=== PATIENT | female | born 1985 | race Caucasian/White ===

== ENCOUNTER 2017-05-01 23:24 | Emergency (ER) | payer OTHER, SELFPAY ==
[~2017-05-01] VITALS: Ht 160 cm; Wt 77.3 kg
[2017-05-02] MEDS ORDERED: CLEO300C2 PO (01:41)
[2017-05-02] MEDS ORDERED: NORCOTAB PO (01:41)
[2017-05-02] MEDS ORDERED: CLINDAMYCIN 150 MG CAP PO ONE (01:45)
[2017-05-02] MEDS ORDERED: NORCO, ANEXSIA 5/325MG TABLET (HYDROcodone/ACETAMINOPHEN) PO ONE (01:45)
[2017-05-02 01:50] VITALS: BP 123/56
[2017-05-17] MEDS ORDERED: ZITHTAB PO (14:13)
== END 2017-05-02 01:53 | disposition home or self-care (01) ==
LOC: M ED 23:24
DX: M27.3 Alveolitis of jaws (principal); F17.210 Nicotine dependence, cigarettes, uncomplicated; Z88.0 Allergy status to penicillin

== ENCOUNTER 2017-06-02 13:23 | Emergency (ER) | payer OTHER ==
[~2017-06-02] VITALS: Ht 160 cm; Wt 77.3 kg
[~2017-06-02 13:23] MED LIST: CLEO300C2 PO; NORCOTAB PO; ZITHTAB PO
[2017-06-02] MEDS ORDERED: GI COCKTAIL 50ML BTL(HYOSCYAMINE/MAALOX/LIDOCAINE VISCOUS)(1:3:1) PO ONE (15:30)
[2017-06-02 15:43] LABS: BASO % 0.4 % (0.0-1.0); EOS # 0.1 10^3/uL (0.0-0.50); EOS % 1.6 % (0.0-3.0); IMMATURE GRANULOCYTE % 0.2 % (0-0); LYMPH # 3.1 10^3/uL (1.5-4.5); LYMPH % 36.4 % (24.0-44.0); MEAN CORPUSCULAR HEMOGLOBIN 26.5 pg (27.0-33.0); MEAN CORPUSCULAR HGB CONC 31.3 g/dl (32.0-36.5); MEAN CORPUSCULAR VOLUME 84.8 fl (80.0-96.0); MONO # 0.4 10^3/uL (0.0-0.8); NEUTROPHILS # 4.8 10^3/uL (1.8-7.7); NEUTROPHILS % 56.4 % (36.0-66.0); PLATELET COUNT, AUTOMATED 289 10^3/uL (150-450); RED CELL DISTRIBUTION WIDTH 14.8 % (11.5-14.5); WHITE BLOOD COUNT 8.6 10^3/uL (4.0-10.0)
--- NOTE | 2017-06-02 16:06 | REP ---
Clinical: Chest pain . Comparison: 05/17/2017 . Technique: PA and lateral. Findings: The mediastinum and cardiac silhouette are normal. The lung barajas are clear and without acute consolidation, effusion, or pneumothorax. The skeletal structures are intact and normal. Impression: 1. No acute cardiopulmonary process. Signed by Samson Hassan MD 06/02/2017 03:58 P
[2017-06-02 16:07] LABS: ALBUMIN 3.5 GM/DL (3.2-5.2); ALBUMIN/GLOBULIN RATIO 0.97 (1.00-1.93); ALKALINE PHOSPHATASE 71 U/L (45-117); ALT/SGPT 18 U/L (12-78); ANION GAP 5 MEQ/L (8-16); AST/SGOT 10 U/L (7-37); BILIRUBIN,DIRECT < 0.1 MG/DL (0.0-0.2); BILIRUBIN,TOTAL 0.2 MG/DL (0.2-1.0); BLOOD UREA NITROGEN 4 MG/DL (7-18); CALCIUM LEVEL 8.7 MG/DL (8.5-10.1); CARBON DIOXIDE LEVEL 29 MEQ/L (21-32); CHLORIDE LEVEL 104 MEQ/L (98-107); CREATININE FOR GFR 0.64 MG/DL (0.55-1.02); GLOMERULAR FILTRATION RATE > 60.0 (>60); GLUCOSE, FASTING 123 MG/DL (70-105); POTASSIUM SERUM 3.5 MEQ/L (3.5-5.1); SODIUM LEVEL 138 MEQ/L (136-145); TOTAL PROTEIN 7.1 GM/DL (6.4-8.2)
[2017-06-02 16:36] VITALS: BP 126/74
--- NOTE | 2017-06-03 09:23 | ECGEPIP ---
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
== END 2017-06-02 17:07 | disposition home or self-care (01) ==
LOC: M ED 13:23
DX: R07.89 Other chest pain (principal); F17.210 Nicotine dependence, cigarettes, uncomplicated; Z88.0 Allergy status to penicillin

== ENCOUNTER 2017-07-18 20:18 | Emergency (ER) | payer OTHER ==
[2017-07-18] MEDS: MORPHINE 4 MG/ML 1ML SYRINGE IV ×2 (20:59→22:56)
[2017-07-18 21:12] LABS: BASO % 0.5 % (0.0-1.0); EOS # 0.2 10^3/uL (0.0-0.50); EOS % 2.4 % (0.0-3.0); HEMATOCRIT 38.1 % (36.0-47.0); HEMOGLOBIN 12.1 g/dl (12.0-16.0); IMMATURE GRANULOCYTE % 0.2 % (0-0); LYMPH # 2.6 10^3/uL (1.5-4.5); LYMPH % 31.6 % (24.0-44.0); MEAN CORPUSCULAR HEMOGLOBIN 26.7 pg (27.0-33.0); MEAN CORPUSCULAR HGB CONC 31.8 g/dl (32.0-36.5); MEAN CORPUSCULAR VOLUME 83.9 fl (80.0-96.0); MONO # 0.5 10^3/uL (0.0-0.8); MONO % 5.5 % (0.0-5.0); NEUTROPHILS % 59.8 % (36.0-66.0); PLATELET COUNT, AUTOMATED 292 10^3/uL (150-450); RED BLOOD COUNT 4.54 10^6/uL (4.00-5.40); RED CELL DISTRIBUTION WIDTH 14.8 % (11.5-14.5); WHITE BLOOD COUNT 8.4 10^3/uL (4.0-10.0)
[2017-07-18 21:29] LABS: CONTROL LINE HCG INT CTR LINE PRESENT; HCG, SERUM QUALITATIVE NEGATIVE (NEGATIVE)
[2017-07-18 21:37] LABS: ALBUMIN 3.4 GM/DL (3.2-5.2); ALBUMIN/GLOBULIN RATIO 0.89 (1.00-1.93); ALKALINE PHOSPHATASE 80 U/L (45-117); ALT/SGPT 20 U/L (12-78); ANION GAP 7 MEQ/L (8-16); AST/SGOT 13 U/L (7-37); BILIRUBIN,DIRECT < 0.1 MG/DL (0.0-0.2); BILIRUBIN,TOTAL 0.1 MG/DL (0.2-1.0); BLOOD UREA NITROGEN 9 MG/DL (7-18); CALCIUM LEVEL 7.9 MG/DL (8.5-10.1); CARBON DIOXIDE LEVEL 25 MEQ/L (21-32); CHLORIDE LEVEL 108 MEQ/L (98-107); CREATININE FOR GFR 0.67 MG/DL (0.55-1.02); GLOMERULAR FILTRATION RATE > 60.0 (>60); GLUCOSE, FASTING 132 MG/DL (70-105); POTASSIUM SERUM 3.8 MEQ/L (3.5-5.1); SODIUM LEVEL 140 MEQ/L (136-145); TOTAL PROTEIN 7.2 GM/DL (6.4-8.2)
[2017-07-18] MEDS ORDERED: ISOVUE-370 76% 100ML VIAL (Q9967) As Ordered (21:37)
[2017-07-19] MEDS: OXYCODONE/APAP 5MG/325MG(BULK FOR ED) 1 TABLET PO (00:15)
== END 2017-07-19 00:17 | disposition home or self-care (01) ==
LOC: M ED 07-19 00:17
DX: Z04.1 Encounter for examination and observation following transport accident (principal); S16.1XXA Strain of muscle, fascia and tendon at neck level, initial encounter; V48.5XXA Car driver injured in noncollision transport accident in traffic accident, initial encounter; Y92.410 Unspecified street and highway as the place of occurrence of the external cause; Y93.89 Activity, other specified; Y99.8 Other external cause status; F17.210 Nicotine dependence, cigarettes, uncomplicated; Z88.0 Allergy status to penicillin
CPT/HCPCS: Q9967

== ENCOUNTER 2017-07-30 18:00 | Emergency (ER) | payer OTHER ==
[2017-07-30] MEDS: METOCLOPRAMIDE INJ 10MG/2ML VIAL (J2765) IV (18:40)
[2017-07-30] MEDS: diphenhydrAMINE INJ 50MG/ML VIAL (J1200) IV (18:40)
[2017-07-30] MEDS: NS 1,000 ML IV (18:40)
[2017-07-30] MEDS: KETOROLAC 30 MG/ML VIAL (J1885) IV (18:40)
[2017-07-30] MEDS: HYDROmorphone HCL 1 MG/ML SYRINGE (J1170) IV (19:51)
== END 2017-07-30 20:40 | disposition home or self-care (01) ==
LOC: M ED 18:00
DX: R51 Headache (principal); F07.81 Postconcussional syndrome; F17.210 Nicotine dependence, cigarettes, uncomplicated
CPT/HCPCS: J1170

== ENCOUNTER 2019-03-10 11:14 | Emergency (ER) | payer OTHER ==
[~2019-03-10] VITALS: Ht 162.6 cm; Wt 83.9 kg
[~2019-03-10 11:14] MED LIST changes: +HYDR-3715 PO; +IBUP-1114 PO; -NORCOTAB PO; +PERC5TAB12 PO
[2019-03-10] MEDS ORDERED: prenatal (11:19)
[2019-03-10 12:00] LABS: BASO % 0.2 % (0.0-1.0); EOS # 0.2 10^3/uL (0.0-0.50); EOS % 1.7 % (0.0-3.0); HEMATOCRIT 39.1 % (36.0-47.0); HEMOGLOBIN 12.7 g/dl (12.0-15.5); LYMPH # 2.4 10^3/uL (1.5-4.5); MEAN CORPUSCULAR HEMOGLOBIN 29.1 pg (27.0-33.0); MEAN CORPUSCULAR HGB CONC 32.5 g/dl (32.0-36.5); MEAN CORPUSCULAR VOLUME 89.5 fl (80.0-96.0); MONO # 0.6 10^3/uL (0.0-0.8); MONO % 6.5 % (0.0-5.0); NEUTROPHILS # 5.7 10^3/uL (1.8-7.7); NEUTROPHILS % 64.3 % (36.0-66.0); PLATELET COUNT, AUTOMATED 223 10^3/uL (150-450); RED BLOOD COUNT 4.37 10^6/uL (4.00-5.40); WHITE BLOOD COUNT 8.9 10^3/uL (4.0-10.0)
[2019-03-10 12:25] LABS: BLOOD UREA NITROGEN 6 MG/DL (7-18); CARBON DIOXIDE LEVEL 27 MEQ/L (21-32); CHLORIDE LEVEL 108 MEQ/L (98-107); CREATININE FOR GFR 0.51 MG/DL (0.55-1.30); GLOMERULAR FILTRATION RATE > 60.0 (>60); GLUCOSE, FASTING 87 MG/DL (70-100); SODIUM LEVEL 140 MEQ/L (136-145)
[2019-03-10 12:29] LABS: HCG, SERUM QUALITATIVE POSITIVE (NEGATIVE)
[2019-03-10 13:16] LABS: HCG, SERUM QUANTITATIVE 92309 MIU/ML
[2019-03-10] MEDS ORDERED: ACETAMINOPHEN 500 MG TAB PO ONE (13:30)
--- NOTE | 2019-03-10 14:26 | REP ---
First trimester obstetric ultrasound, stat request for cramping and hematuria: There is a single intrauterine gestation. The pole crown-rump length is 1.9 cm corresponding to a gestational age of 8 weeks 3 days/LUZ MARIA is 10/17/2019. Gestational age by LMP is 8 weeks 3 days. heart rate is 163 beats per minute. There is no subchorionic hematoma. There is a normal size yolk sac measuring 3.9 mm in diameter. The uterine adnexa are unremarkable. There is no free fluid in the pelvis. Electronically Signed by Vaughn Garcia MD 03/10/2019 02:17 P
[2019-03-10 14:52] VITALS: BP 127/33
[2019-03-10] MEDS ORDERED: MACR100C43 PO (14:52)
[2019-03-10 15:27] LABS: CHLAMYDIA DNA AMPLIFICATION NEGATIVE (NEGATIVE); GC DNA AMPLIFICATION NEGATIVE (NEGATIVE)
== END 2019-03-10 14:59 | disposition home or self-care (01) ==
LOC: M ED 11:14
DX: O23.41 Unspecified infection of urinary tract in pregnancy, first trimester (principal); Z88.0 Allergy status to penicillin; Z3A.08 8 weeks gestation of pregnancy

== ENCOUNTER → 2019-05-06 | Outpatient (CLI) | payer OTHER ==
[~2019-05-06] MED LIST changes: +BUSP5TA PO; +HYDR-4571 PO; +MACR100C43 PO; +MULTTAB20 PO; +ZOLO25TA PO; +prenatal
[2019-05-06 13:10] LABS: BASO % 0.2 % (0.0-1.0); EOS # 0.1 10^3/uL (0.0-0.5); EOS % 1.1 % (0.0-3.0); HEMATOCRIT 37.9 % (36.0-47.0); HEMOGLOBIN 12.2 g/dl (12.0-15.5); LYMPH # 2.2 10^3/uL (1.5-5.0); MEAN CORPUSCULAR HEMOGLOBIN 29.5 pg (27.0-33.0); MEAN CORPUSCULAR HGB CONC 32.2 g/dl (32.0-36.5); MEAN CORPUSCULAR VOLUME 91.8 fl (80.0-96.0); MONO # 0.6 10^3/uL (0.0-0.8); MONO % 5.9 % (0.0-5.0); NEUTROPHILS # 6.5 10^3/uL (1.5-8.5); NEUTROPHILS % 69.2 % (36.0-66.0); PLATELET COUNT, AUTOMATED 214 10^3/uL (150-450); RED BLOOD COUNT 4.13 10^6/uL (4.00-5.40); WHITE BLOOD COUNT 9.4 10^3/uL (4.0-10.0)
[2019-05-06 14:33] LABS: HEPATITIS C VIRUS ABY INDEX 0.1 INDEX (<0.8); HIV 1&2 SCREEN CENTAUR NEGATIVE (NEGATIVE); RUBELLA IgG QUALITATIVE IMMUNE (IMMUNE)
[2019-05-06 15:05] LABS: CHLAMYDIA DNA AMPLIFICATION NEGATIVE (NEGATIVE); GC DNA AMPLIFICATION NEGATIVE (NEGATIVE)
== END ==
LOC: M SMT 10:37
PROVIDERS: ATTEND Obstetrics & Gynecology
DX: Z3A.08 8 weeks gestation of pregnancy (principal); Z34.01 Encounter for supervision of normal first pregnancy, first trimester

== ENCOUNTER 2019-05-11 20:21 | Day surgery (SDC) | payer OTHER ==
[~2019-05-11] VITALS: Ht 162.6 cm; Wt 80.1 kg
[~2019-05-11 20:21] MED LIST changes: -BUSP5TA PO; -HYDR-4571 PO; -MULTTAB20 PO; -ZOLO25TA PO
[2019-05-11] MEDS ORDERED: ZOLO25TA PO (20:42)
[2019-05-11] MEDS ORDERED: NS 1,000 ML IV ONE (20:45)
[2019-05-11] MEDS ORDERED: MORPHINE 4 MG/ML 1ML VIAL/SYRINGE (J2270) IV PRN (20:45)
[2019-05-11] MEDS ORDERED: SERTRALINE HCL 25 MG TABLET PO SCH (21:00)
[2019-05-11 21:08] LABS: BASO % 0.1 % (0.0-1.0); EOS # 0.1 10^3/uL (0.0-0.5); EOS % 0.5 % (0.0-3.0); HEMATOCRIT 36.6 % (36.0-47.0); HEMOGLOBIN 11.8 g/dl (12.0-15.5); LYMPH # 1.8 10^3/uL (1.5-5.0); LYMPH % 11.9 % (24.0-44.0); MEAN CORPUSCULAR HEMOGLOBIN 28.9 pg (27.0-33.0); MEAN CORPUSCULAR HGB CONC 32.2 g/dl (32.0-36.5); MEAN CORPUSCULAR VOLUME 89.7 fl (80.0-96.0); MONO # 0.5 10^3/uL (0.0-0.8); MONO % 3.5 % (0.0-5.0); NEUTROPHILS # 12.6 10^3/uL (1.5-8.5); NEUTROPHILS % 83.5 % (36.0-66.0); PLATELET COUNT, AUTOMATED 203 10^3/uL (150-450); RED BLOOD COUNT 4.08 10^6/uL (4.00-5.40); WHITE BLOOD COUNT 15.1 10^3/uL (4.0-10.0)
[2019-05-11 21:37] LABS: ALBUMIN 2.9 GM/DL (3.2-5.2); ALT/SGPT 11 U/L (12-78); BILIRUBIN,DIRECT < 0.1 MG/DL (0.0-0.2); BILIRUBIN,TOTAL 0.2 MG/DL (0.2-1.0); BLOOD UREA NITROGEN 5 MG/DL (7-18); CALCIUM LEVEL 8.3 MG/DL (8.5-10.1); CARBON DIOXIDE LEVEL 23 MEQ/L (21-32); CHLORIDE LEVEL 109 MEQ/L (98-107); CREATININE FOR GFR 0.42 MG/DL (0.55-1.30); GLOMERULAR FILTRATION RATE > 60.0 (>60); GLUCOSE, FASTING 91 MG/DL (70-100); LIPASE 212 U/L (73-393); POTASSIUM SERUM 3.6 MEQ/L (3.5-5.1); SODIUM LEVEL 139 MEQ/L (136-145)
[2019-05-11] MEDS ORDERED: ACETAMINOPHEN *IV* 1,000 MG in IV 1 EA IV ONE (22:00)
[2019-05-11] MEDS ORDERED: HYDROMORPHONE HCL 0.5 MG/ 0.5 ML SYRINGE (J1170 PER 1) IV PRN (22:00)
--- NOTE | 2019-05-11 22:11 | REPVR ---
PROCEDURE INFORMATION: Exam: US Pelvis Limited, Transabdominal Exam date and time: 05/11/2019 9:39 PM Clinical history: 33 years old, female; Pain; Other: Rlq; Additional info: Pain, rlq, second trimester TECHNIQUE: Imaging protocol: Real-time transabdominal pelvic ultrasound with image documentation. Limited exam. COMPARISON: CT ABD PELVIS WITH CONTRAST 07/18/2017 9:47 PM FINDINGS: Appendix: The appendix is not seen. Other findings: No specific abnormality is seen in the right lower quadrant. IMPRESSION: The appendix is not seen. Appendicitis is not excluded. Electronically signed by: Negro Fields On 05/11/2019 22:10:55 PM
--- NOTE | 2019-05-11 22:14 | REPVR ---
PROCEDURE INFORMATION: Exam: US Abdomen Complete Exam date and time: 05/11/2019 9:39 PM Clinical history: 33 years old, female; Pain; Other: Rlq; ; Additional info: Pain, rlq, second trimester TECHNIQUE: Imaging protocol: Real-time ultrasound of the abdomen with image documentation. COMPARISON: No relevant prior studies available. FINDINGS: Liver: The liver demonstrates no focal defects. Gallbladder: The gallbladder demonstrates no stones and no wall thickening but demonstrates an internal structures suggesting polyp or cholesterol stone. Common bile duct: CBD measures 5 mm. Pancreas: The pancreatic head and body appear normal. The tail is not well seen. Right kidney: The right kidney is normal measuring 11.2 cm with no hydronephrosis. Left kidney: The left kidney is normal measuring 11.8 cm with no hydronephrosis. Spleen: The spleen is normal measuring 12.4 cm. IMPRESSION: 1. Small gallbladder cholesterol stone or polyp. 2. Otherwise negative abdominal sonogram. Electronically signed by: Negro Fields On 05/11/2019 22:14:02 PM
--- NOTE | 2019-05-11 22:18 | REPVR ---
PROCEDURE INFORMATION: Exam: US , Limited Exam date and time: 05/11/2019 9:39 PM Clinical history: 33 years old, female; Pain; Other: Rlq; Gestational age or lmp: 17; ; Additional info: Pain, rlq, second trimester TECHNIQUE: Imaging protocol: Real-time ultrasound of the maternal uterus with image documentation. Exam focused on the clinical indication. COMPARISON: CT ABD PELVIS WITH CONTRAST 07/18/2017 9:47 PM FINDINGS: GESTATION: Gestation: Single intrauterine fetus. Heart rate: heartbeat of 153 beats per minute. Placenta: Anterior placenta. Amniotic fluid: NOE of 9.3 cm. MATERNAL: Cervix: The cervix is closed measuring 4.2 cm. IMPRESSION: 1. Single live intrauterine fetus. 2. Normal NOE of 9.3 cm. Electronically signed by: Negro Fields On 05/11/2019 22:18:24 PM
--- NOTE | 2019-05-12 00:04 | REPVR ---
PROCEDURE INFORMATION: Exam: MR Abdomen Without Contrast Exam date and time: 05/11/2019 11:28 PM Clinical history: 33 years old, female; Abdominal pain; Patient HX: 17wks , rlq pain ? appy TECHNIQUE: Imaging protocol: MR of the abdomen without contrast. COMPARISON: US Abdomen 05/11/2019 9:20 PM FINDINGS: Liver: No mass. Gallbladder and bile ducts: Unremarkable. No stones. No ductal dilation. Pancreas: Unremarkable. No ductal dilation. Spleen: Unremarkable. No splenomegaly. Adrenals: Unremarkable. No mass. Kidneys and ureters: Unremarkable. No solid mass. No hydronephrosis. Stomach and bowel: Unremarkable. Appendix: Appendix is borderline enlarged measuring 6.5-7 mm without significant periappendiceal fluid. Minimal appendicitis is not excluded and should be assessed clinically. Intraperitoneal space: No fluid collection. Arteries: No abdominal aortic aneurysm. Reproductive: Gravid uterus demonstrated. Bones/joints: Unremarkable. Soft tissues: Unremarkable. IMPRESSION: Appendix is borderline enlarged measuring 6.5-7 mm without significant periappendiceal fluid. Minimal appendicitis is not excluded and should be assessed clinically. A critical call has been made to speak with the ordering physician/practitioner. This report will be amended once consultation has occurred. Electronically signed by: Zelalem Shin On 05/12/2019 00:03:42 AM
[2019-05-12] MEDS ORDERED: CLINDAMYCIN 900 MG in IV 1 EA IV ONE (00:30)
[2019-05-12] MEDS ORDERED: ZOLO25TA PO (00:40)
[2019-05-12] MEDS ORDERED: BUSP5TA PO (00:40)
[2019-05-12] MEDS ORDERED: MULTTAB20 PO (00:40)
[2019-05-12] MEDS ORDERED: BUPIVACAINE/EPIN 0.25% 30 ML VIAL As Ordered ONE (01:02)
[2019-05-12] MEDS ORDERED: ACETAMINOPHEN TAB 650MG DOSE (2X325MG) PO PRN (01:15)
[2019-05-12] MEDS ORDERED: busPIRone 5 MG TAB PO PRN (01:15)
[2019-05-12] MEDS ORDERED: dexameTHASONE 4 MG/ML 1ML VIAL (J1100) As Ordered ONE (01:28)
[2019-05-12] MEDS ORDERED: ROCURONIUM BROMIDE 50 MG/5 ML VIAL As Ordered ONE (01:28)
[2019-05-12] MEDS ORDERED: LIDOCAINE 2% INJ 100 MG/5 ML SDV (FOR ANES.) As Ordered ONE (01:28)
[2019-05-12] MEDS ORDERED: ONDANSETRON 4MG/2ML VIAL (J2405) As Ordered ONE (01:28)
[2019-05-12] MEDS ORDERED: PROPOFOL 200 MG/20 ML VIAL As Ordered ONE (01:28)
[2019-05-12] MEDS ORDERED: SUGAMMADEX SODIUM 500 MG/5 ML VIAL (BRIDION) As Ordered ONE (01:28)
[2019-05-12] MEDS ORDERED: METOCLOPRAMIDE INJ 10MG/2ML VIAL (J2765) As Ordered ONE (01:28)
[2019-05-12] MEDS ORDERED: fentaNYL 250 MCG/5 ML INJECTION (J3010) As Ordered ONE (01:28)
[2019-05-12] MEDS ORDERED: DESFLURANE 240 ML INHALANT As Ordered ONE (01:28)
[2019-05-12] MEDS ORDERED: fentaNYL 100 MCG/2 ML INJECTION (J3010) IV PRN (02:00)
[2019-05-12] MEDS ORDERED: LR 1,000 ML IV SCH (02:00)
[2019-05-12] MEDS ORDERED: ONDANSETRON 4MG/2ML VIAL (J2405) IV PRN (02:00)
[2019-05-12] MEDS: NORCO, ANEXSIA 5/325MG TABLET (HYDROcodone/ACETAMINOPHEN) PO PRN ×2 (02:35→09:06)
[2019-05-12 03:00] VITALS: BP 133/66
[2019-05-12] MEDS: NS 1,000 ML IV SCH ×2 (03:52→09:08)
[2019-05-12 04:00] VITALS: BP 107/60
[2019-05-12] MEDS: MORPHINE 4 MG/ML 1ML VIAL/SYRINGE (J2270) IV PRN ×2 (04:29→10:52)
[2019-05-12 05:00] VITALS: BP 106/60
[2019-05-12 06:00] VITALS: BP 105/61
[2019-05-12 07:05] VITALS: BP 105/62
--- NOTE | 2019-05-12 07:28 | HPE ---
DATE OF ADMISSION: 05/11/2019 CHIEF COMPLAINT: Right lower quadrant pain. HISTORY OF PRESENT ILLNESS: The patient 33-year-old female who presents with right lower quadrant pain started early this afternoon and pain was sharp stay the right lower quadrant got suddenly worse had some nausea, vomiting with no fevers. No problems urination or bowel movements. She came into emergency room for evaluation. The patient also 17 weeks . In the ER ultrasound was negative for appendicitis. However, an MRI was obtained which did confirm there is likely early appendicitis. She also had elevated white count because of this I was called to evaluate. She is extremely tender alongside with leukocytosis and MRI findings highly suspicious for recurrent acute appendicitis. No recent travel or trauma to the area. No recent changes in medications or diet. No recent illnesses. PAST MEDICAL HISTORY: Anxiety, depression. PAST SURGICAL HISTORY: None. ALLERGIES: Penicillin. MEDICATIONS: Please see med rec. SOCIAL HISTORY: Denies drug, alcohol, tobacco abuse. FAMILY HISTORY: Noncontributory. REVIEW OF SYSTEMS: Pertinent, positives and negatives in HPI. PHYSICAL EXAMINATION: Alert and oriented times three. No acute distress. Vitals: Temperature 99, pulse 87, respirations 16, blood pressure 132/79, pulse ox 95% room air. HEENT: Pupils equally round react to light accommodation. Heart: S1-S2 regular rate and Lungs: Clear to auscultation bilaterally. Abdomen: Soft and tender to palpation right lower quadrant. Localized guarding or rigidity. Extremities: No clubbing, cyanosis or edema. LABORATORY DATA: White count 15.1, hemoglobin 11.8, platelets 203, potassium 3.6, creatinine 0.42. IMAGING STUDIES: Obstetric ultrasound showed single live intrauterine fetus. Heart beat of 153 per minute. An MRI shows borderline appendix 6.5-7 mm without significant periappendiceal fluid minimal appendicitis not excluded. ASSESSMENT/PLAN: The patient is a 33-year-old female likely early acute appendicitis. Recommendation to proceed with laparoscopic appendectomy. Risks, benefits of procedure not limited but including bleeding, infection, hernia formation, damage to surrounding structure need for further surgery and labor were discussed in detail with the patient and the family. Informed consent was obtained procedure was planned. Postoperatively will keep her until late morning make sure that she is tolerating diet, ambulating, urinating without any difficulty and the pain is improving and then we will plan for discharge home.
[2019-05-12 09:08] LABS: HEMATOCRIT 34.7 % (36.0-47.0); HEMOGLOBIN 11.1 g/dl (12.0-15.5); MEAN CORPUSCULAR VOLUME 90.6 fl (80.0-96.0); PLATELET COUNT, AUTOMATED 194 10^3/uL (150-450); RED BLOOD COUNT 3.83 10^6/uL (4.00-5.40); WHITE BLOOD COUNT 11.3 10^3/uL (4.0-10.0)
[2019-05-12] MEDS ORDERED: HYDR-4571 PO (09:53)
[2019-05-12 10:00] VITALS: BP 122/62
--- NOTE | 2019-05-12 10:06 | RO ---
DATE OF PROCEDURE: 05/11/2019 PREOPERATIVE DIAGNOSIS: Acute appendicitis. POSTOPERATIVE DIAGNOSIS: Acute appendicitis. PROCEDURE: Laparoscopic appendectomy. SURGEON: Dr. Vaughn Evans ANESTHESIA: General. ESTIMATED BLOOD LOSS: 5 COMPLICATIONS: None. INDICATIONS FOR PROCEDURE: The patient is a 33-year-old female who presents with right lower quadrant pain found to have likely acute appendicitis. Recommendation was to proceed with laparoscopic appendectomy. Risks and benefits of the procedure, not limited but including bleeding, infection, hernia formation, damage to surrounding structure need for further surgery discussed in detail with the patient. Informed consent was obtained, procedure was planned. DESCRIPTION OF PROCEDURE: The patient was taken back to operating room 2. After sufficient sedation the abdomen was sterilely prepped and draped. Next a time-out was done to confirm proper patient and proper procedure. Following that, a 5 mm incision in left lower quadrant, Veress needle was inserted and the abdomen was insufflated 50 mmHg. Next Veress needle was removed. A 5 mm Optiview port was used to gain access to the abdomen. Once the abdomen was entered, the uterus was examined. 8 mm port was placed supraumbilically midline, 5 mm port infraumbilically in the midline. The cecum was identified and traced backwards till the appendix was reached. The appendix was significantly inflamed with some surrounding fluid. The appendix was carefully elevated up in the air. Mesoappendix was taken down to the base of the appendix using the Enseal. Base the appendix was ligated with two PDS Endoloops and then amputated using the Enseal and placed inside of a 5 mm EndoCatch bag and brought out through the supraumbilical port site. The abdomen was examined one last time, ports were removed. Skin incisions closed with #4-0 Vicryl subcuticular sutures. The abdomen cleaned and dried. Steri-Strips 4x4 and tape were applied thus ending procedure.
== END 2019-05-12 12:07 | disposition home or self-care (01) ==
LOC: M ED 20:21 → M SDC 20:22 → M MSPAV 05-12 02:55 → M SDC 05-12 12:07
PROVIDERS: ATTEND Surgery
DX: O99.612 Diseases of the digestive system complicating pregnancy, second trimester (principal); K35.80 Unspecified acute appendicitis; O99.112 Other diseases of the blood and blood-forming organs and certain disorders involving the immune mechanism complicating pregnancy, second trimester; D72.829 Elevated white blood cell count, unspecified; K21.9 Gastro-esophageal reflux disease without esophagitis; M54.9 Dorsalgia, unspecified; O99.342 Other mental disorders complicating pregnancy, second trimester; F41.9 Anxiety disorder, unspecified; F32.9 Major depressive disorder, single episode, unspecified; Z3A.17 17 weeks gestation of pregnancy; Z88.0 Allergy status to penicillin; Z79.899 Other long term (current) drug therapy
CPT/HCPCS: 36415; 44970; 76700; 76815; 80048; 80076; 81001; 83605; 83690; 85025; 85027; 87086; 88304; 93041; 96361; 96365; 96375; 96376; 99284; J0131; J1100; J1170; J2270; J2405; J2765; J3010

== ENCOUNTER → 2019-05-30 | Outpatient (CLI) | payer OTHER ==
[~2019-05-30] MED LIST changes: +BUSP5TA PO; +HYDR-4571 PO; +MULTTAB20 PO; +ZOLO25TA PO
--- NOTE | 2019-05-30 12:13 | REP ---
OB ULTRASOUND: Real-time sonographic evaluation of the gravid uterus performed. There is a living intrauterine gestation with a estimated gestational age 20 weeks 0 days, EDC 10/17/2019. Today's measurements indicate appropriate growth. Biometry and Growth: BPD 46 mm = 19 weeks 6 days, 47th percentile HC 166 mm = 19 weeks 2 days, 29th percentile AC 148 mm = 20 weeks 1 day, 52nd percentile FL 32 mm = 19 weeks 6 days, 45th percentile HC/AC ratio 1.12 within normal range. Estimated weight 319 grams, 43rd percentile. SEEN/GROSSLY UNREMARKABLE Lateral ventricles Yes Posterior fossa Yes Upper lip Yes Four-chamber heart Yes LVOT Yes RVOT Yes Stomach Yes Cord insertion Yes Three vessel cord Yes Kidneys Yes Bladder Yes Spine No Cervical length: Closed and measures 4.4 cm in length. heart rate: 141 beats per minute. position: Breech. Placenta: Anterior and grade 0 with no previa or abruption. Amniotic fluid: Within normal limits. Electronically Signed by Vaughn Lam MD 05/31/2019 08:40 P
== END ==
LOC: M RAD 09:53
PROVIDERS: ATTEND Advanced Practice Midwife
DX: Z34.82 Encounter for supervision of other normal pregnancy, second trimester (principal)

== ENCOUNTER 2019-06-04 21:14 | Outpatient (CLI) | payer OTHER ==
[~2019-06-04] VITALS: Ht 162.6 cm; Wt 185.0 kg
[2019-06-04] MEDS ORDERED: SERT-141 PO (22:02)
[2019-06-04 22:07] VITALS: BP 131/87
[2019-06-04] MEDS ORDERED: PROMETHAZINE 25 MG TAB PO ONE (22:15)
[2019-06-04] MEDS ORDERED: ACETAMINOPHEN 500 MG TAB PO ONE (22:15)
[2019-06-04 22:27] LABS: BASO % 0.2 % (0.0-1.0); EOS # 0.2 10^3/uL (0.0-0.5); EOS % 1.8 % (0.0-3.0); HEMATOCRIT 34.6 % (36.0-47.0); HEMOGLOBIN 10.8 g/dl (12.0-15.5); LYMPH # 2.3 10^3/uL (1.5-5.0); LYMPH % 22.9 % (24.0-44.0); MEAN CORPUSCULAR HEMOGLOBIN 28.9 pg (27.0-33.0); MEAN CORPUSCULAR HGB CONC 31.2 g/dl (32.0-36.5); MEAN CORPUSCULAR VOLUME 92.5 fl (80.0-96.0); MONO # 0.5 10^3/uL (0.0-0.8); MONO % 4.9 % (0.0-5.0); NEUTROPHILS # 7.1 10^3/uL (1.5-8.5); NEUTROPHILS % 69.5 % (36.0-66.0); PLATELET COUNT, AUTOMATED 181 10^3/uL (150-450); RED BLOOD COUNT 3.74 10^6/uL (4.00-5.40); WHITE BLOOD COUNT 10.1 10^3/uL (4.0-10.0)
[2019-06-04 22:36] LABS: APPEARANCE, URINE CLEAR (CLEAR); BACTERIA, URINE AUTO 1+ (NEGATIVE); BILIRUBIN, URINE AUTO NEGATIVE (NEGATIVE); BLOOD, URINE BLOOD 1+ (NEGATIVE); COLOR, URINE STRAW (YELLOW); GLUCOSE, URINE (UA) AUTO NEGATIVE (NEGATIVE); KETONE, URINE AUTO NEGATIVE (NEGATIVE); LEUKOCYTE ESTERASE, URINE AUTO 3+ (NEGATIVE); NITRITE, URINE AUTO NEGATIVE (NEGATIVE); PROTEIN, URINE AUTO NEGATIVE (NEGATIVE); RBC, URINE AUTO 9 /HPF (0-3); SPECIFIC GRAVITY URINE AUTO 1.002 (1.002-1.035); SQUAMOUS EPITHELIAL CELL UR AU 8 /HPF (0-6); UROBILINOGEN, URINE AUTO 0.2 mg/dL (0.0-2.0); WBC, URINE AUTO 18 /HPF (0-3)
[2019-06-04 22:37] VITALS: BP 115/57
[2019-06-04 22:48] LABS: ALBUMIN 2.8 GM/DL (3.2-5.2); ALT/SGPT 16 U/L (12-78); AMYLASE 35 U/L (25-115); BILIRUBIN,TOTAL 0.1 MG/DL (0.2-1.0); BLOOD UREA NITROGEN 6 MG/DL (7-18); CALCIUM LEVEL 8.7 MG/DL (8.5-10.1); CARBON DIOXIDE LEVEL 27 MEQ/L (21-32); CHLORIDE LEVEL 109 MEQ/L (98-107); CREATININE FOR GFR 0.46 MG/DL (0.55-1.30); GLOMERULAR FILTRATION RATE > 60.0 (>60); GLUCOSE, FASTING 91 MG/DL (70-100); LIPASE 100 U/L (73-393); POTASSIUM SERUM 3.9 MEQ/L (3.5-5.1); SODIUM LEVEL 142 MEQ/L (136-145); TOTAL PROTEIN 6.1 GM/DL (6.4-8.2)
[2019-06-04 22:54] LABS: AMPHETAMINES URINE REFLEX NEGATIVE (NEGATIVE); BARBITURATES URINE REFLEX NEGATIVE (NEGATIVE); BENZODIAZEPINES URINE REFLEX NEGATIVE (NEGATIVE); CANNABINOIDS URINE REFLEX NEGATIVE (NEGATIVE); COCAINE METABOLITE URINE REFLE NEGATIVE (NEGATIVE); METHADONE URINE REFLEX NEGATIVE (NEGATIVE); OPIATES URINE REFLEX NEGATIVE (NEGATIVE); PHENCYCLIDINE URINE REFLEX NEGATIVE (NEGATIVE)
[2019-06-04] MEDS ORDERED: NITR-67 PO (22:54)
[2019-06-04] MEDS ORDERED: NITROFURANTOIN (MACROBID) 100 MG CAP PO ONE (23:00)
[2019-06-04 23:07] VITALS: BP 120/59
[2019-06-05 00:59] VITALS: BP 121/63
[2019-06-05] MEDS ORDERED: LR 1,000 ML IV ONE (01:15)
[2019-06-05] MEDS ORDERED: MORPHINE 4 MG/ML 1ML VIAL/SYRINGE (J2270) IV ONE (01:15)
[2019-06-05 01:36] VITALS: BP 126/60
[2019-06-05 04:00] VITALS: BP 132/59
[2019-06-05 07:28] VITALS: BP 110/56
[2019-06-05 09:33] VITALS: BP 109/58
[2019-06-05 11:08] VITALS: BP 117/56
== END 2019-06-05 11:33 | disposition home or self-care (01) ==
LOC: M LDO 21:14
PROVIDERS: ATTEND Obstetrics & Gynecology
DX: O26.892 Other specified pregnancy related conditions, second trimester (principal); R10.30 Lower abdominal pain, unspecified; Z3A.20 20 weeks gestation of pregnancy
CPT/HCPCS: 36415; 76815; 80053; 80307; 81001; 82150; 83690; 85025; 87086; 96361; 96374; J2270

== ENCOUNTER → 2019-06-13 | Outpatient (CLI) | payer OTHER ==
[~2019-06-13] MED LIST changes: +NITR-67 PO; +SERT-141 PO
--- NOTE | 2019-06-14 08:03 | REP ---
Clinical: Anatomical evaluation. Comparison: 05/30/2019 . Findings: Examination demonstrates a single live intrauterine in breech presentation. motion is identified by technologist. Placenta is noted anterior and grade I without evidence for placenta previa or abruption. Amniotic fluid volume is normal. Cervix measures 5.2 cm in length and appears closed. No evidence for nuchal cord. Gestational age by LMP 22 weeks 0 days with LUZ MARIA 10/17/2019 . Gestational age by current measurements 22 weeks 0 days with LUZ MARIA 10/17/2019 . FHR equals 153 beats per minute. Estimated weight 520 grams ( 66th percentile). Anatomical assessment demonstrates normal structures including cranium, choroid plexus, cavum, cerebellum/posterior fossa, facial features, lungs, four-chamber heart/ventricular outflow tracts, diaphragm, stomach, cord insertion/three-vessel cord, kidneys/bladder, spine, and extremities. Impression: Single live intrauterine in breech presentation demonstrating appropriate interval growth. Anatomical assessment is complete and normal. No gross abnormalities are identified. Electronically Signed by Samson Hassan MD 06/13/2019 10:15 A
== END ==
LOC: M RAD 09:27
PROVIDERS: ATTEND Advanced Practice Midwife
DX: Z34.82 Encounter for supervision of other normal pregnancy, second trimester (principal)

== ENCOUNTER 2019-07-07 13:11 | Outpatient (CLI) | payer OTHER ==
[~2019-07-07] VITALS: Ht 160 cm; Wt 83.5 kg
[2019-07-07 13:29] VITALS: BP 115/58
[2019-07-07] MEDS ORDERED: BUSP5TAB81 PO (13:32)
[2019-07-07 14:44] VITALS: BP 116/67
[2019-07-07] MEDS ORDERED: ACETAMINOPHEN 500 MG TAB PO PRN (15:00)
--- NOTE | 2019-07-07 15:03 | REP ---
OB ULTRASOUND: Real-time sonographic evaluation of gravid uterus performed utilizing transabdominal and endovaginal technique. There is a single living intrauterine gestation. The estimated gestational age is 25 weeks 3 days, EDC 10/17/2019. Cervix is closed and measures 4.6 cm in length. heart rate 136 beats per minute. position is footling breech. Placenta is anterior and grade 1 with no previa or abruption. Electronically Signed by Vaughn Lam MD 07/07/2019 04:35 P
[2019-07-07 15:20] LABS: APPEARANCE, URINE HAZY (CLEAR); BACTERIA, URINE AUTO NEGATIVE (NEGATIVE); BILIRUBIN, URINE AUTO NEGATIVE (NEGATIVE); BLOOD, URINE BLOOD 2+ (NEGATIVE); COLOR, URINE YELLOW (YELLOW); GLUCOSE, URINE (UA) AUTO NEGATIVE (NEGATIVE); KETONE, URINE AUTO NEGATIVE (NEGATIVE); LEUKOCYTE ESTERASE, URINE AUTO TRACE (NEGATIVE); MUCUS, URINE SMALL (NEGATIVE); NITRITE, URINE AUTO NEGATIVE (NEGATIVE); PROTEIN, URINE AUTO NEGATIVE (NEGATIVE); RBC, URINE AUTO 0 /HPF (0-3); SPECIFIC GRAVITY URINE AUTO 1.015 (1.002-1.035); SQUAMOUS EPITHELIAL CELL UR AU 7 /HPF (0-6); UROBILINOGEN, URINE AUTO 0.2 mg/dL (0.0-2.0); WBC, URINE AUTO 10 /HPF (0-3)
--- NOTE | 2019-07-07 16:15 | REP ---
RENAL ULTRASOUND: Real-time sonographic evaluation of the kidneys is performed. Both kidneys are normal in size and echotexture, right kidney measuring 11.3 x 4.6 x 4.9 cm and left kidney 12.3 x 5.1 x 5.6 cm. There is mild right hydronephrosis. There is no left hydronephrosis. No definite renal stones are seen. Proximal right ureter is mildly dilated. There are bilateral ureteral jets in the urinary bladder with Doppler color evaluation. Patient is 26-weeks with heart rate noted to be 153 beats per minute. IMPRESSION: Mild right hydronephrosis. There are bilateral ureteral jets in the urinary bladder. Electronically Signed by Vaughn Lam MD 07/07/2019 04:35 P
[2019-07-07 16:17] VITALS: BP 123/57
[2019-07-07 16:39] LABS: CHLAMYDIA DNA AMPLIFICATION NEGATIVE (NEGATIVE); GC DNA AMPLIFICATION NEGATIVE (NEGATIVE)
[2019-07-07] MEDS ORDERED: METR-265 PO (16:51)
--- NOTE | 2019-07-07 17:10 | IPNPDOC ---
Text Note Date of Service The patient was seen on 07/07/19. NOTE Outpatient 33yo . LUZ MARIA 10/17/2019. Presents with complaints of groin, low back pain, bleeding and greenish discharge. Denies LOF. Reports bleeding was on wipe this am x 2 with roma sized blood clot. Partner reports IC last night. tracing reassuring for gestation. Spec exam, cervix visually parous, LTC. Small streak of blood noted. No active bleeding. GC/CT/Trich obtained. SVE LT TVUS shows footling breech viable fetus. Cervix 4.6cm, closed, no funneling. UA + blood, + wbc Renal scan shows mild hydronephrosis. + Trich, neg GC/CT. Reviewed transmission of trichomonas. Pt and partner have only been together since December. Reviewed possible presence of kidney stones, enc increased hydration. Treat metronidazole 500mg BID x 7 days for pt. Rx written for partner, 2gm one dose. Reviewed no ETOH or sexual activity till treatment is complete. Discharged home. instructed to make appt for next week because she missed her appt today. VS,Fishbone, I+O VS, Fishbone, I+O Vital Signs Date Time Temp Pulse Resp B/P (MAP) Pulse Ox O2 Delivery O2 Flow Rate FiO2 07/07/19 16:17 88 18 123/57 (79) 07/07/19 13:29 97.4 Florencia Cheung CNM Jul 07, 2019 17:10
[2019-07-07] MEDS ORDERED: metroNIDAZOLE (FLAGYL) 500 MG TAB PO ONE (18:00)
== END 2019-07-07 17:10 | disposition home or self-care (01) ==
LOC: M LDO 13:11
PROVIDERS: ATTEND Advanced Practice Midwife
DX: O98.312 Other infections with a predominantly sexual mode of transmission complicating pregnancy, second trimester (principal); A59.00 Urogenital trichomoniasis, unspecified; O26.892 Other specified pregnancy related conditions, second trimester; M54.5 Low back pain; R10.30 Lower abdominal pain, unspecified; O26.852 Spotting complicating pregnancy, second trimester; Z3A.25 25 weeks gestation of pregnancy

== ENCOUNTER 2019-07-28 20:07 | Outpatient (CLI) | payer MEDICAID, OTHER ==
[~2019-07-28] VITALS: Ht 162.6 cm; Wt 87.2 kg
[~2019-07-28 20:07] MED LIST changes: +BUSP5TAB81 PO; +METR-265 PO
[2019-07-28 20:19] VITALS: BP 136/65
[2019-07-28] MEDS ORDERED: PERCOCET 5MG/325MG TAB PO ONE (22:15)
--- NOTE | 2019-07-29 00:07 | IPN ---
DATE: 07/28/2019 A 33-year-old 7, para 4 female at 20 and 5/7 weeks gestation, presents with severe lower back pain that radiates to the front for several hours. He came to triage for evaluation. She denies vaginal bleeding or loss of fluid. There is good movement. She has no history of labor. OBJECTIVE: She is afebrile. Vital signs are stable. She appears mildly uncomfortable. Head and Neck Exam: Normal. Lungs: Clear. Heart: Regular rate and rhythm. Abdomen: Nontender, soft, . heart tones are category 1. Cervix is long, closed, posterior. She has moderate tenderness in the area of the sacroiliac joint posteriorly. No flank tenderness. ASSESSMENT: 33-year-old 7, para 4 at 20 and 5/7 weeks gestation with sacroiliitis. PLAN: Patient was given Percocet one tablet; she had excellent relief of pain. Patient was discharged home with instructions.
== END 2019-07-28 23:20 | disposition home or self-care (01) ==
LOC: M LDO 20:07
PROVIDERS: ATTEND Specialist
DX: O99.89 Other specified diseases and conditions complicating pregnancy, childbirth and the puerperium (principal); Z3A.20 20 weeks gestation of pregnancy; M46.1 Sacroiliitis, not elsewhere classified; Z88.0 Allergy status to penicillin; Z91.09 Other allergy status, other than to drugs and biological substances

== ENCOUNTER 2019-08-25 18:26 | Emergency (ER) | payer MEDICAID, OTHER ==
[~2019-08-25] VITALS: Ht 162.6 cm; Wt 89.9 kg
[2019-08-25 18:26] VITALS: BP 149/81
[2019-08-25] MEDS ORDERED: CYCL10TA (18:33)
[2019-08-25] MEDS ORDERED: QC A650T3 PO (18:33)
[2019-08-25] MEDS ORDERED: HYDR1CAP25 (18:33)
[2019-08-25 20:14] LABS: INFLUENZA A AMPLIFICATION NEGATIVE (NEGATIVE); INFLUENZA B AMPLIFICATION NEGATIVE (NEGATIVE)
[2019-08-25] MEDS ORDERED: NS 1,000 ML IV ONE (21:45)
[2019-08-25] MEDS ORDERED: ACETAMINOPHEN 500 MG TAB PO ONE (21:45)
[2019-08-25 22:09] LABS: BASO % 0.2 % (0.0-1.0); EOS # 0.2 10^3/uL (0.0-0.5); EOS % 1.1 % (0.0-3.0); HEMATOCRIT 32.8 % (36.0-47.0); HEMOGLOBIN 10.4 g/dl (12.0-15.5); LYMPH # 2.8 10^3/uL (1.5-5.0); LYMPH % 16.3 % (24.0-44.0); MEAN CORPUSCULAR HEMOGLOBIN 26.7 pg (27.0-33.0); MEAN CORPUSCULAR HGB CONC 31.7 g/dl (32.0-36.5); MEAN CORPUSCULAR VOLUME 84.3 fl (80.0-96.0); MONO # 0.9 10^3/uL (0.0-0.8); MONO % 5.2 % (0.0-5.0); NEUTROPHILS # 12.9 10^3/uL (1.5-8.5); NEUTROPHILS % 76.1 % (36.0-66.0); PLATELET COUNT, AUTOMATED 278 10^3/uL (150-450); RED BLOOD COUNT 3.89 10^6/uL (4.00-5.40)
[2019-08-25] MEDS ORDERED: ONDANSETRON 4MG/2ML VIAL (J2405) IV ONE (22:30)
[2019-08-25 22:31] LABS: ALBUMIN 2.8 GM/DL (3.2-5.2); ALT/SGPT 14 U/L (12-78); BILIRUBIN,TOTAL 0.3 MG/DL (0.2-1.0); BLOOD UREA NITROGEN 5 MG/DL (7-18); CALCIUM LEVEL 8.5 MG/DL (8.5-10.1); CARBON DIOXIDE LEVEL 23 MEQ/L (21-32); CHLORIDE LEVEL 106 MEQ/L (98-107); CREATININE FOR GFR 0.45 MG/DL (0.55-1.30); GLOMERULAR FILTRATION RATE > 60.0 (>60); GLUCOSE, FASTING 95 MG/DL (70-100); POTASSIUM SERUM 3.8 MEQ/L (3.5-5.1); SODIUM LEVEL 139 MEQ/L (136-145); TOTAL PROTEIN 6.6 GM/DL (6.4-8.2)
[2019-08-25 22:38] LABS: APPEARANCE, URINE HAZY (CLEAR); BACTERIA, URINE AUTO 1+ (NEGATIVE); BILIRUBIN, URINE AUTO NEGATIVE (NEGATIVE); BLOOD, URINE BLOOD NEGATIVE (NEGATIVE); COLOR, URINE STRAW (YELLOW); GLUCOSE, URINE (UA) AUTO NEGATIVE (NEGATIVE); KETONE, URINE AUTO NEGATIVE (NEGATIVE); LEUKOCYTE ESTERASE, URINE AUTO TRACE (NEGATIVE); NITRITE, URINE AUTO NEGATIVE (NEGATIVE); PROTEIN, URINE AUTO NEGATIVE (NEGATIVE); RBC, URINE AUTO 1 /HPF (0-3); SPECIFIC GRAVITY URINE AUTO 1.002 (1.002-1.035); SQUAMOUS EPITHELIAL CELL UR AU 5 /HPF (0-6); UROBILINOGEN, URINE AUTO 0.2 mg/dL (0.0-2.0); WBC, URINE AUTO 3 /HPF (0-3)
--- NOTE | 2019-08-25 23:30 | REPVR ---
PROCEDURE INFORMATION: Exam: US , Limited Exam date and time: 08/25/2019 10:43 PM Age: 34 years old Clinical indication: Other: Abd pain, diff breathing; Gestational age or lmp: 32w 3d; ; Additional info: Abdominal pain TECHNIQUE: Imaging protocol: Real-time ultrasound of the maternal uterus with image documentation. Exam focused on the clinical indication. COMPARISON: TRANSVAGINAL US 07/07/2019 2:19 PM FINDINGS: GESTATION: Gestation: Single live intrauterine in breech presentation. Heart rate: heart rate is 145 bpm. Presentation: Live single intrauterine in a breech position. Placenta: Placenta is anterior. No placenta previa or abruption. Amniotic fluid: Amniotic fluid index is 14.1 cm which is normal for gestational age. Umbilical cord and insertion: Cord depression is seen, nuchal cord cannot be completely ruled out. DOPPLER: Umbilical artery Doppler: Umbilical mid cord: Peak systolic velocity is 38.8 centimeter/second and end-diastolic velocity is 15.6 centimeter/second. Systolic/diastolic ratio is 2.49, normal. Resistive index 0.60, normal. IMPRESSION: Single live intrauterine in breech presentation. Placenta is anterior. No placenta previa or abruption. Amniotic fluid index is 14.1 cm which is normal for gestational age. Cord depression is seen, nuchal cord cannot be completely ruled out. Electronically signed by: Fanny Smith On 08/25/2019 23:29:57 PM
[2019-08-26] MEDS ORDERED: METAL LOCK LOOP XX ONE (23:16)
== END 2019-08-25 22:58 | disposition admitted as inpatient to this hospital (09) ==
LOC: M ED 18:26
DX: O26.893 Other specified pregnancy related conditions, third trimester (principal); R10.9 Unspecified abdominal pain; O99.343 Other mental disorders complicating pregnancy, third trimester; F41.9 Anxiety disorder, unspecified; Z88.0 Allergy status to penicillin; Z91.048 Other nonmedicinal substance allergy status; Z79.899 Other long term (current) drug therapy; Z3A.32 32 weeks gestation of pregnancy

== ENCOUNTER 2019-08-25 22:55 | Outpatient (CLI) | payer OTHER ==
[~2019-08-25] VITALS: Ht 162.6 cm; Wt 89.5 kg
[~2019-08-25 22:55] MED LIST changes: +CYCL10TA; +HYDR1CAP25; +QC A650T3 PO
[2019-08-25 23:08] VITALS: BP 110/56
[2019-08-26 00:50] VITALS: BP 108/56
--- NOTE | 2019-08-26 14:30 | IPN ---
DATE OF EVALUATION: 08/25/2019 34-year-old female at 29 weeks gestation presents to the ER with upper respiratory congestion and shortness of breath (SOB). She started to develop lover abdominal pains as well. She had normal labs including electrolytes in the ER and she was sent up for monitoring. OBJECTIVE:: Afebrile, vital signs stable. No apparent distress. Head and neck exam normal. Lungs clear. Heart regular rate and rhythm. Abdomen, nontender, gravid. heart tones category 1. Contractions rare. Extremities nontender. ASSESSMENT: 34-year-old at 29 weeks gestation with upper respiratory viral syndrome. PLAN: Fluids. Rest. Tylenol. Patient will followup in the office as scheduled.
== END 2019-08-26 01:30 | disposition home or self-care (01) ==
LOC: M LDO 22:55
PROVIDERS: ATTEND Specialist
DX: O99.513 Diseases of the respiratory system complicating pregnancy, third trimester (principal); J06.9 Acute upper respiratory infection, unspecified; R06.03 Acute respiratory distress; Z3A.29 29 weeks gestation of pregnancy

== ENCOUNTER → 2019-09-05 | Outpatient (CLI) | payer OTHER ==
[2019-09-05 13:20] LABS: HEMATOCRIT 32.1 % (36.0-47.0); HEMOGLOBIN 9.8 g/dl (12.0-15.5); MEAN CORPUSCULAR HEMOGLOBIN 26.1 pg (27.0-33.0); MEAN CORPUSCULAR HGB CONC 30.5 g/dl (32.0-36.5); MEAN CORPUSCULAR VOLUME 85.6 fl (80.0-96.0); PLATELET COUNT, AUTOMATED 270 10^3/uL (150-450); RED BLOOD COUNT 3.75 10^6/uL (4.00-5.40); WHITE BLOOD COUNT 12.6 10^3/uL (4.0-10.0)
== END ==
LOC: M PLALAB 10:23
PROVIDERS: ATTEND Specialist
DX: Z34.82 Encounter for supervision of other normal pregnancy, second trimester (principal)

== ENCOUNTER 2019-09-15 17:58 | Outpatient (CLI) | payer MEDICAID, OTHER ==
[~2019-09-15] VITALS: Ht 162.6 cm; Wt 91.6 kg
[~2019-09-15 17:58] MED LIST changes: -CYCL10TA; +CYCL10TA PO; -HYDR1CAP25; +HYDR1CAP25 PO
[2019-09-15 18:16] VITALS: BP 134/56
[2019-09-15] MEDS ORDERED: PRENTAB9 PO (18:27)
[2019-09-15] MEDS ORDERED: TUMS750C5 PO (18:28)
[2019-09-15] MEDS ORDERED: LACTATED RINGER'S 1000 ML IV STA (18:53)
[2019-09-15] MEDS ORDERED: LR 1,000 ML IV SCH (18:53)
[2019-09-15 19:24] LABS: HEMATOCRIT 28.4 % (36.0-47.0); HEMOGLOBIN 8.9 g/dl (12.0-15.5); MEAN CORPUSCULAR HEMOGLOBIN 25.6 pg (27.0-33.0); MEAN CORPUSCULAR HGB CONC 31.3 g/dl (32.0-36.5); MEAN CORPUSCULAR VOLUME 81.6 fl (80.0-96.0); PLATELET COUNT, AUTOMATED 268 10^3/uL (150-450); RED BLOOD COUNT 3.48 10^6/uL (4.00-5.40); WHITE BLOOD COUNT 11.4 10^3/uL (4.0-10.0)
[2019-09-15 19:33] LABS: APPEARANCE, URINE CLOUDY (CLEAR); BACTERIA, URINE AUTO 2+ (NEGATIVE); BILIRUBIN, URINE AUTO NEGATIVE (NEGATIVE); BLOOD, URINE BLOOD NEGATIVE (NEGATIVE); CALCIUM OXALATE CRYSTALS LARGE; COLOR, URINE YELLOW (YELLOW); GLUCOSE, URINE (UA) AUTO 1+ mg/dL (NEGATIVE); KETONE, URINE AUTO TRACE mg/dL (NEGATIVE); LEUKOCYTE ESTERASE, URINE AUTO 1+ (NEGATIVE); MUCUS, URINE SMALL (NEGATIVE); NITRITE, URINE AUTO NEGATIVE (NEGATIVE); PROTEIN, URINE AUTO 1+ mg/dL (NEGATIVE); RBC, URINE AUTO 9 /HPF (0-3); SPECIFIC GRAVITY URINE AUTO 1.023 (1.002-1.035); SQUAMOUS EPITHELIAL CELL UR AU 19 /HPF (0-6); TRANSITIONAL EPITHELIAL AUTO <1 /HPF; UROBILINOGEN, URINE AUTO 0.2 mg/dL (0.0-2.0); WBC, URINE AUTO 35 /HPF (0-3)
[2019-09-15 20:02] LABS: ALBUMIN 2.3 GM/DL (3.2-5.2); ALT/SGPT 14 U/L (12-78); BILIRUBIN,TOTAL < 0.1 MG/DL (0.2-1.0); BLOOD UREA NITROGEN 5 MG/DL (7-18); CALCIUM LEVEL 8.3 MG/DL (8.5-10.1); CARBON DIOXIDE LEVEL 25 MEQ/L (21-32); CHLORIDE LEVEL 110 MEQ/L (98-107); CREATININE FOR GFR 0.38 MG/DL (0.55-1.30); GLOMERULAR FILTRATION RATE > 60.0 (>60); GLUCOSE, FASTING 81 MG/DL (70-100); SODIUM LEVEL 142 MEQ/L (136-145); TOTAL PROTEIN 5.7 GM/DL (6.4-8.2)
--- NOTE | 2019-09-15 21:04 | REPVR ---
PROCEDURE INFORMATION: Exam: US Retroperitoneal Limited, Kidneys Exam date and time: 09/15/2019 8:56 PM Age: 34 years old Clinical indication: Abdominal pain; Flank; Left upper quadrant (luq); ; Additional info: Left upper abdominal pain, suspect kidney stone TECHNIQUE: Imaging protocol: Real-time ultrasound of the retroperitoneum with image documentation. Examination was focused on the kidneys. COMPARISON: RENAL US 07/07/2019 3:34 PM FINDINGS: Right kidney: Right kidney measures 12.9 x 4.8 x 5.1 cm. Mild dilatation of the right collecting system and proximal ureter. Left kidney: Left kidney measures 12.9 x 5.7 x 6.2 cm. Bladder: Visualized bladder unremarkable. IMPRESSION: Mild hydronephrosis in the right kidney most likely related to the patient's gravid status and compression of the right ureter. Otherwise unremarkable. Electronically signed by: Zelalem Shin On 09/15/2019 21:03:49 PM
[2019-09-15 21:05] VITALS: BP 115/56
[2019-09-15] MEDS ORDERED: ONDANSETRON 4 MG ORAL DISINTEGRATING TAB (Q0162 PER 1MG) PO ONE (21:30)
[2019-09-15] MEDS ORDERED: ACETAMINOPHEN 500 MG TAB PO ONE (22:00)
--- NOTE | 2019-09-16 16:04 | IPN ---
DATE: 09/15/2019 A 34-year-old (G) 7, para (P) 4 female at 35-3/7 weeks gestation who presents with several days of crampy upper abdominal pain in the mid epigastric region. She has had intermittent vomiting. Pain and vomiting got worse today. She denies fevers. She has multiple sick contact including a stepchild in the emergency room (ER) and a child at home. She has no diarrhea. OBJECTIVE: Blood pressure 115/56, pulse 112, respiratory rate 18, temperature 98.6. Appears mildly uncomfortable. HEAD AND NECK: Normal. LUNGS: Clear. HEART: Regular rate and rhythm. ABDOMEN: Mildly tender in the epigastrium. Uterus is soft, nontender. heart tones category 1. No contractions. STERILE VAGINAL EXAMINATION: Long, closed, posterior. EXTREMITIES: Nontender. ASSESSMENT: A 34-year-old (G) 7, para (P) 4 female at 35-3/7 weeks gestation with likely a viral syndrome. PLAN: Check laboratories and administer intravenous fluids. We will base imaging on results of laboratory findings. Administer antiemetics and Tylenol to help with symptomatic relief.
== END 2019-09-15 23:00 | disposition home or self-care (01) ==
LOC: M LDO 17:58
PROVIDERS: ATTEND Specialist
DX: O99.89 Other specified diseases and conditions complicating pregnancy, childbirth and the puerperium (principal); Z3A.35 35 weeks gestation of pregnancy; R11.2 Nausea with vomiting, unspecified
CPT/HCPCS: 59025; 76775; 80053; 81001; 85027; 87086; Q0162

== ENCOUNTER 2019-09-17 11:02 | Outpatient (CLI) | payer OTHER ==
[~2019-09-17] VITALS: Ht 162.6 cm; Wt 91.3 kg
[~2019-09-17 11:02] MED LIST changes: +PRENTAB9 PO; +TUMS750C5 PO
[2019-09-17 11:17] VITALS: BP 134/75
[2019-09-17] MEDS ORDERED: NITR-67 PO (12:40)
== END 2019-09-17 12:41 | disposition home or self-care (01) ==
LOC: M LDO 11:02
PROVIDERS: ATTEND Obstetrics & Gynecology
DX: O99.89 Other specified diseases and conditions complicating pregnancy, childbirth and the puerperium (principal); Z3A.35 35 weeks gestation of pregnancy; O23.43 Unspecified infection of urinary tract in pregnancy, third trimester; O99.343 Other mental disorders complicating pregnancy, third trimester; Z87.891 Personal history of nicotine dependence

== ENCOUNTER → 2019-09-19 | Outpatient (REF) | payer OTHER, MEDICAID | LOC: M SFHCWAGY 11:10 | PROVIDERS: ATTEND Advanced Practice Midwife | DX: Z34.93 Encounter for supervision of normal pregnancy, unspecified, third trimester (principal) ==

== ENCOUNTER → 2019-09-26 | Outpatient (CLI) | payer OTHER ==
[~2019-09-26] MED LIST changes: +OSEL75CA PO
--- NOTE | 2019-09-26 14:00 | REP ---
OB ULTRASOUND AND BIOPHYSICAL PROFILE: Real-time sonographic evaluation of the gravid uterus is performed. There is a single intrauterine gestation. The estimated gestational age is reportedly 37 weeks 0 days, EDC . heart rate 149 beats per minute. Amniotic fluid appears within normal limits, NOE 11.0 within normal range of 7.5 to 24.4. Biophysical profile score 8/8. S/D ratio 2.21 within normal range of 1.6 to 2.6. RI 0.55 slightly below the normal range of 0.59 to 0.75. position breech. Placenta anterior and grade 2 with no previa or abruption. Electronically Signed by Vaughn Lam MD 09/26/2019 06:20 P
== END ==
LOC: M RAD 11:30
PROVIDERS: ATTEND Obstetrics & Gynecology
DX: O32.1XX0 Maternal care for breech presentation, not applicable or unspecified (principal); Z3A.37 37 weeks gestation of pregnancy

== ENCOUNTER → 2019-09-26 | Outpatient (CLI) | payer OTHER, MEDICAID | LOC: M WHC 10:38 | PROVIDERS: ATTEND Obstetrics & Gynecology | DX: O32.1XX0 Maternal care for breech presentation, not applicable or unspecified (principal); Z3A.00 Weeks of gestation of pregnancy not specified ==

== ENCOUNTER 2019-10-10 05:26 | Inpatient (IN) | payer OTHER ==
[~2019-10-10] VITALS: Ht 162.6 cm; Wt 93.2 kg
[2019-10-10] VITALS (7 sets, daily range): BP systolic 118–126; BP diastolic 56–67
[2019-10-10] MEDS ORDERED: LR 1,000 ML IV SCH (06:00)
[2019-10-10] MEDS ORDERED: BICITRA 30ML SOLN UDC PO ONE (06:00)
[2019-10-10] MEDS ORDERED: LR 1,000 ML IV ONE (06:00)
[2019-10-10] MEDS ORDERED: ceFAZolin SOD 2 GM in IV 1 EA IV ONE (06:00)
[2019-10-10 06:24] LABS: HEMATOCRIT 31.7 % (36.0-47.0); HEMOGLOBIN 9.5 g/dl (12.0-15.5); MEAN CORPUSCULAR HEMOGLOBIN 23.9 pg (27.0-33.0); MEAN CORPUSCULAR VOLUME 79.6 fl (80.0-96.0); PLATELET COUNT, AUTOMATED 313 10^3/uL (150-450); RED BLOOD COUNT 3.98 10^6/uL (4.00-5.40); WHITE BLOOD COUNT 14.1 10^3/uL (4.0-10.0)
[2019-10-10] MEDS ORDERED: diphenhydrAMINE 25 MG CAP PO STA (06:40)
[2019-10-10] MEDS ORDERED: ePHEDrine SULFATE 25 MG/5 ML(5MG/ML) SYRINGE As Ordered ONE (08:14)
[2019-10-10] MEDS ORDERED: PHENYLephrine HCL 500 MCG/5 ML (100MCG/ML) SYRINGE (J2370) As Ordered ONE (08:14)
[2019-10-10] MEDS ORDERED: OXYTOCIN INJ 10 UNITS/ML VIAL (J2590) As Ordered ONE (08:14)
[2019-10-10] MEDS ORDERED: KETOROLAC 60 MG/2 ML VIAL (J1885) As Ordered ONE (08:14)
[2019-10-10] MEDS ORDERED: MORPHINE PRES-FREE INJ 10 MG/10 ML VIAL (J2274) As Ordered ONE (08:14)
[2019-10-10] MEDS ORDERED: ONDANSETRON 4MG/2ML VIAL (J2405) As Ordered ONE (08:14)
[2019-10-10] MEDS ORDERED: dexameTHASONE 4 MG/ML 1ML VIAL (J1100) As Ordered ONE (08:14)
[2019-10-10] MEDS ORDERED: OXYTOCIN 30 UNITS IN 0.9% NaCl 500ML IV BAG (J2590) As Ordered ONE (08:38)
[2019-10-10] MEDS ORDERED: ONDANSETRON 4MG/2ML VIAL (J2405) IV PRN ×2 (09:00→09:15)
[2019-10-10] MEDS ORDERED: MEASLES,MUMPS,RUBELLA VACCINE INJ (MMR-II) (90707) SC SCH (09:00)
[2019-10-10] MEDS: DOCUSATE SODIUM 100 MG CAP PO SCH ×2 (09:00→20:29)
[2019-10-10] MEDS ORDERED: MOM 30ML SUSPENSION UDC PO PRN (09:00)
[2019-10-10] MEDS ORDERED: OXYTOCIN DRIP 30 UNITS in IV 1 EA IV SCH (09:00)
[2019-10-10] MEDS ORDERED: RHOGAM 300 MCG (1500 IU) INJ (J2790) IM SCH (09:00)
[2019-10-10] MEDS: PRENATAL VITAMINS CHEWABLE TABLET PO SCH (09:00)
[2019-10-10] MEDS ORDERED: fentaNYL 100 MCG/2 ML INJECTION (J3010) As Ordered ONE (09:47)
[2019-10-10] MEDS: fentaNYL 100 MCG/2 ML INJECTION (J3010) IV PRN ×2 (09:49→09:59)
[2019-10-10] MEDS: PERCOCET 5MG/325MG TAB PO PRN ×3 (12:02→22:51)
[2019-10-10] MEDS: LR 1,000 ML IV SCH ×2 (14:23→22:57)
[2019-10-10] MEDS: KETOROLAC 30 MG/ML VIAL (J1885) IV SCH ×2 (14:54→20:30)
[2019-10-11 02:02] VITALS: BP 123/73
[2019-10-11] MEDS: KETOROLAC 30 MG/ML VIAL (J1885) IV SCH (03:08)
[2019-10-11 06:30] VITALS: BP 140/68
[2019-10-11] MEDS: PERCOCET 5MG/325MG TAB PO PRN ×3 (06:52→19:36)
[2019-10-11 07:02] LABS: HEMATOCRIT 27.8 % (36.0-47.0); HEMOGLOBIN 8.3 g/dl (12.0-15.5); MEAN CORPUSCULAR HEMOGLOBIN 23.9 pg (27.0-33.0); MEAN CORPUSCULAR HGB CONC 29.9 g/dl (32.0-36.5); MEAN CORPUSCULAR VOLUME 80.1 fl (80.0-96.0); PLATELET COUNT, AUTOMATED 237 10^3/uL (150-450); RED BLOOD COUNT 3.47 10^6/uL (4.00-5.40); WHITE BLOOD COUNT 12.4 10^3/uL (4.0-10.0)
--- NOTE | 2019-10-11 07:39 | IPNPDOC ---
Progress Note Date of Service: Oct 11, 2019 Day#: 1 Progress Note SUBJECT: Patient is a 34-year-old female who is day 1 . She has been ambulating, voiding spontaneously without issue and tolerating regular diet. She is bottle feeding her . OBJECTIVE: VITAL SIGNS: Within normal limits, afebrile. Alert and oriented times three. Breath sounds clear to auscultation. Heart rate: Regular rate and rhythm, no murmurs, rubs or gallops. Abdomen: Fundus firm at U. Minimal lochia. ASSESSMENT: Day 1 postoperative PLAN: 1. Continue with supportive nursing care and pain management. 2. Consider discharge tomorrow. VS, I&O, 24H, Fishbone Vital Signs/I&O Vital Signs Date Time Temp Pulse Resp B/P (MAP) Pulse Ox O2 Delivery O2 Flow Rate FiO2 10/11/19 06:52 18 10/11/19 06:30 97.3 98 140/68 (92) 97 Room Air I&O- Last 24 Hours up to 6 AM 10/11/19 06:00 Intake Total 5461 ml Output Total 2175 ml Balance 3286 ml Laboratory Data 24H LABS Laboratory Tests 2 10/11/19 06:44: Nucleated Red Blood Cells % (auto) 0.0 CBC/BMP Laboratory Tests 10/11/19 06:44 TONIA ALEXANDRA CNM Oct 11, 2019 07:39
[2019-10-11] MEDS: PRENATAL VITAMINS CHEWABLE TABLET PO SCH (08:09)
[2019-10-11] MEDS: DOCUSATE SODIUM 100 MG CAP PO SCH ×2 (08:09→20:45)
[2019-10-11] MEDS ORDERED: ADACEL/BOOSTRIX VACCINE (DIPHTH/PERTUSS/ACELL/TETANUS)0.5ML SYR (90715) IM ONE (09:00)
[2019-10-11] MEDS: IBUPROFEN 800 MG TAB PO SCH ×2 (10:27→18:36)
[2019-10-11 10:38] VITALS: BP 134/63
--- NOTE | 2019-10-11 12:04 | ROOPDOC ---
[facility] Report Of Operation Report of Operation DATE OF OPERATION: 10/10/2019 SURGEON: Ella Williamson M.D. BRAND REPRESENTATIVE: Stephanie Vences CNM ANESTHESIA:. Spinal ESTIMATED BLOOD LOSS: 500 mL URINE OUTPUT:, 75 mL INTRAVENOUS FLUIDS: 1600 amounts of lactated Ringer's solution. PREOPERATIVE ANTIBIOTICS: 2 g of Ancef OPERATIVE FINDINGS: Liveborn male , Apgars 9 and 9. Weight was 8 lbs. 4 oz. at 3750 g, main breech presentation SPECIMENS:. Bilateral segments of fallopian tube INDICATIONS FOR PROCEDURE:. Breech presentation. Satisfied parity with undesired fertility Preoperative diagnosis: Breech presentation and satisfy parity with undesired fertility. Postoperative diagnosis: Breech presentation and satisfy parity with undesired fertility DESCRIPTION OF PROCEDURE: After informed consent was obtained and written consent was reviewed. The patient was brought to the operating room where spinal anesthesia was placed. She was then placed in the supine position with a left la teral tilt. Tabares catheter was placed and to gravity. Patient was then prepped and draped in the normal sterile fashion. A timeout operating room was performed identifying the patient, procedure be performed as well as drug allergies. Anesthesia was tested and deemed to be adequate. Pfannenstiel skin incision was made and this was carried down to the underlying rectus fascia. The fascia was then scored and this incision was extended bilaterally. The fascia was then dissected off the underlying rectus muscle superiorly and inferiorly. The rectus muscles were then in the midline. The peritoneum is then entered. Vesicouterine peritoneum was then tented and excised and a bladder flap was created. Mobius retractor was then placed. Next, a curvilinear incision was then made in the lower uterine segment. Amniotomy was performed, productive, clear fluid. breech was brought to the level of the incision. The lower extremities. Fetus is in the liver down to the level of the scapula where the lower extremities were delivered followed by delivery of head. The cord was clamped 2. The infant was brought over to the warmer with a good cry. Placenta was drained and delivered grossly intact. The uterus was cleared of all clots and debris and the uterine incision was then closed in 2 layers using 0 Vicryl, first in a running locking fashion followed by second layer for imbrication. The abdomen suctioned. Attention was then turned to a bilateral Luis M. Cintron tubal ligation. A window was created in the right mesosalpinx. This area was doubly ligated with 3-0 chromic and was excised with good hemostasis noted. In a similar fashion, the left fallopian tube was placed on traction. A window was created in the mesosalpinx. This area was doubly ligated with 3-0 chromic and was excised, and hemostasis was noted. Surgical sites reinspected and noted be hemostatic. The retractor was then removed. The anterior peritoneum was then reapproximated with 3-0 Vicryl. The rectus muscles were reapproximated 3-0 Vicryl. The fascia was then closed using 0 Vicryl in a running nonlocking fashion. The subcutaneous tissues was then irrigated and suctioned. Subcutaneous tissue was reapproximated using 3-0 Vicryl. Several subdermal stitch is placed using 3-0 Vicryl and the skin was closed with 4-0 Monocryl and subarticular fashion. This incision was then cleaned and dried and was dressed. The patient was then taken to recovery in stable condition. All counts were correct. My assistant professor surgical technology Stephanie Vences played in an essential roll during the operation. They assisted with tissue identification retraction, delivery of the , as well as wound closure. ELLA WILLIAMSON MD. Oct 11, 2019 12:04
[2019-10-11 14:44] VITALS: BP 137/67
[2019-10-11 18:32] VITALS: BP 141/80
[2019-10-11 22:00] VITALS: BP_SYST 122; BP_SYST 132; BP_DIAS 70; BP_DIAS 86
[2019-10-12] MEDS: PERCOCET 5MG/325MG TAB PO PRN ×2 (01:29→08:04)
[2019-10-12] MEDS: IBUPROFEN 800 MG TAB PO SCH ×2 (02:31→11:02)
[2019-10-12 06:00] VITALS: BP 132/67
[2019-10-12] MEDS: PRENATAL VITAMINS CHEWABLE TABLET PO SCH (08:03)
[2019-10-12] MEDS: DOCUSATE SODIUM 100 MG CAP PO SCH (08:03)
[2019-10-12] MEDS ORDERED: PERCOCET PO (08:41)
[2019-10-12] MEDS ORDERED: IBUP80TA PO (08:41)
[2019-10-12] MEDS ORDERED: ADACEL/BOOSTRIX VACCINE (DIPHTH/PERTUSS/ACELL/TETANUS)0.5ML SYR (90715) IM ONE (09:00)
--- NOTE | 2019-10-12 09:01 | DS.PDOC ---
Discharge Summary General Date of Admission Oct 10, 2019 at 05:26 Date of Discharge 10/12/19 Attending Physician: MARIAA CHRISTENSEN MD. Discharge Summary PROCEDURES PERFORMED DURING STAY: 1. section 2. Bilateral [place] tubal ligation. 3. Spinal anesthesia. ADMITTING DIAGNOSES: 1. Breech presentation. 2. Intrauterine at 39 weeks. 3. Satisfied parity with undesired fertility. DISCHARGE DIAGNOSES: 1. Breech presentation. 2. Intrauterine at 39 weeks. 3. Satisfied parity with undesired fertility. COMPLICATIONS/CHIEF COMPLAINT: Breech, Satisfied Fertility. HISTORY OF PRESENT ILLNESS: Patient presents for scheduled section, 39 weeks. She was counseled on options for breech presentation and desired to proceed with section. She had also expressed. Satisfied parity with undesired fertility. HOSPITAL COURSE:. section was unremarkable. She had a liveborn male , Apgars 9 and 9. Patient did well postoperatively. By postoperative day #2, had met all discharge criteria and was discharged home in stable condition. DISCHARGE MEDICATIONS: Please see below. ALLERGIES: Please see below. PHYSICAL EXAMINATION ON DISCHARGE: VITAL SIGNS: Please see below. GENERAL:. Well-appearing, no acute distress ABDOMINAL EXAMINATION:. Soft, appropriately tender. Fundus is below umbilicus. Incision was dressed EXTREMITIES:. Negative for calf tenderness LABORATORY DATA: Please see below. ACTIVITY: As tolerated. DIET: Regular DISCHARGE PLAN: Home today DISPOSITION: . DISCHARGE INSTRUCTIONS: 1. Remain on pelvic rest for 6 weeks. 2. Rectal lifting more than 20 pounds for 6 weeks. 3. Reports severe pain, heavy vaginal bleeding, fever or incisional issues. DISCHARGE CONDITION: Stable. Vital Signs/I&Os Vital Signs Date Time Temp Pulse Resp B/P (MAP) Pulse Ox O2 Delivery O2 Flow Rate FiO2 10/12/19 08:44 18 10/12/19 06:00 97.1 92 132/67 (88) 98 Room Air Discharge Medications Scheduled No.137/Iron/Folic Acd ( Vitamin Tablet) 1 Each Tablet, 1 TAB PO DAILY, (Reported) Scheduled PRN Cyclobenzaprine HCl (Cyclobenzaprine HCl) 10 Mg Tablet, 10 MG PO DAILYPRN PRN for MUSCLE SPASMS, (Reported) Ibuprofen (Ibuprofen) 800 Mg Tablet, 800 MG PO Q8HP PRN for PAIN Oxycodone/Acetaminophen (Oxycodone-Acetaminophen 5-325) 1 Each Tablet, 1-2 TAB PO Q6HP PRN for SEVERE PAIN (PS 8-10) Allergies Coded Allergies: Penicillins (Verified Allergy, Intermediate, hives, 09/28/19) TAPE (Verified Allergy, Intermediate, RASH, 09/28/19) ALLERGY IS PLASTIC TAPE ciprofloxacin (Verified Allergy, Unknown, HIVES, 10/10/19) MARIAA JETER MD. Oct 12, 2019 09:01
== END 2019-10-12 11:35 | disposition home or self-care (01) | DRG 540 ==
LOC: M LDI 05:26 → M OBS 10:34
PROVIDERS: ADMIT Obstetrics & Gynecology; ATTEND Obstetrics & Gynecology
PROC: 0UB70ZZ Excision of Bilateral Fallopian Tubes, Open Approach (ICD-10-PCS; 2019-10-10)
PROC: 10D00Z1 Extraction of Products of Conception, Low, Open Approach (ICD-10-PCS; principal; 2019-10-10 07:30)
DX: O32.1XX0 Maternal care for breech presentation, not applicable or unspecified (principal); Z30.2 Encounter for sterilization; Z3A.39 39 weeks gestation of pregnancy; Z37.0 Single live birth

== ENCOUNTER 2019-12-19 17:04 | Emergency (ER) | payer OTHER ==
[~2019-12-19 17:04] MED LIST changes: +CYCL-707 PO; -CYCL10TA PO; +IBUP80TA PO; +PERCOCET PO
[2019-12-19 18:51] LABS: HEMATOCRIT 35.9 % (36.0-47.0); HEMOGLOBIN 10.7 g/dl (12.0-15.5); MEAN CORPUSCULAR HEMOGLOBIN 24.2 pg (27.0-33.0); MEAN CORPUSCULAR HGB CONC 29.8 g/dl (32.0-36.5); PLATELET COUNT, AUTOMATED 320 10^3/uL (150-450); RED BLOOD COUNT 4.43 10^6/uL (4.00-5.40); WHITE BLOOD COUNT 9.8 10^3/uL (4.0-10.0)
[2019-12-19] MEDS ORDERED: ACETAMINOPHEN 325 MG TAB PO ONE (19:00)
[2019-12-19 19:05] LABS: HCG, SERUM QUALITATIVE NEGATIVE (NEGATIVE)
[2019-12-19 19:11] LABS: ACETAMINOPHEN LEVEL < 2.0 UG/ML (10.0-30.0); ALBUMIN 3.4 GM/DL (3.2-5.2); ALT/SGPT 39 U/L (12-78); BILIRUBIN,DIRECT < 0.1 MG/DL (0.0-0.2); BILIRUBIN,TOTAL 0.2 MG/DL (0.2-1.0); BLOOD UREA NITROGEN 8 MG/DL (7-18); CALCIUM LEVEL 8.3 MG/DL (8.5-10.1); CARBON DIOXIDE LEVEL 29 MEQ/L (21-32); CHLORIDE LEVEL 105 MEQ/L (98-107); CK-MB VALUE MASS 3.1 NG/ML (<3.6); CPK CREATINE PHOSPHOKINASE 257 U/L (26-192); CREATININE FOR GFR 0.64 MG/DL (0.55-1.30); ETHYL ALCOHOL (ETHANOL) 0.003 % (0.000-0.010); GLOMERULAR FILTRATION RATE > 60.0 (>60); GLUCOSE, FASTING 95 MG/DL (70-100); MAGNESIUM LEVEL 2.1 MG/DL (1.8-2.4); MB/CK RELATIVE INDEX 1.21 (< OR =4); POTASSIUM SERUM 3.9 MEQ/L (3.5-5.1); SALICYLATE LEVEL 1.7 MG/DL (5.0-30.0); SODIUM LEVEL 141 MEQ/L (136-145); TOTAL PROTEIN 6.8 GM/DL (6.4-8.2); TROPONIN I < 0.02 NG/ML (< 0.10)
--- NOTE | 2019-12-19 19:29 | REPVR ---
PROCEDURE INFORMATION: Exam: CT Head Without Contrast Exam date and time: 12/19/2019 7:18 PM Age: 34 years old Clinical indication: Injury or trauma; Fall; Initial encounter; Blunt trauma (contusions or hematomas); Consciousness not specified; Additional info: Head injury TECHNIQUE: Imaging protocol: Computed tomography of the head without contrast. Radiation optimization: All CT scans at this facility use at least one of these dose optimization techniques: automated exposure control; mA and/or kV adjustment per patient size (includes targeted exams where dose is matched to clinical indication); or iterative reconstruction. COMPARISON: CT Head without contrast 07/30/2017 7:44 PM FINDINGS: Brain: Normal. No hemorrhage. Unremarkable white matter. No mass effect. Ventricles: Normal. No ventriculomegaly. Bones/joints: Unremarkable. No acute fracture. Sinuses: Visualized sinuses are unremarkable. No fluid levels. Mastoid air cells: Visualized mastoid air cells are well aerated. Soft tissues: Unremarkable. IMPRESSION: No acute intracranial abnormality. Electronically signed by: Ryan Steen On 12/19/2019 19:29:19 PM
--- NOTE | 2019-12-19 21:11 | ECGEPIP ---
[facility] - ED Test Date: 2019-12-19 Pat Name: ALDAIR MIRZA Department: Room: - Gender: Female [employer]er: [facility] : 1985 Requested By: RICO DOYLE Order Number: [id number] Reading MD: Leighann Kelly Measurements Intervals [place] Rate: 108 P: 31 OH: 132 QRS: 13 QRSD: 93 T: 6 QT: 333 QTc: 448 Interpretive Statements SINUS TACHYCARDIA ABNORMAL RHYTHM ECG INCREASED RATE 06/02/17 Electronically Signed on 12-19-2019 21:11:39 EDT by Leighann Kelly
[2019-12-19 21:39] LABS: AMPHETAMINES LEVEL URINE POSITIVE (NEGATIVE); BARBITURATES URINE NEGATIVE (NEGATIVE); BENZODIAZEPINES URINE NEGATIVE (NEGATIVE); CANNABINOIDS URINE NEGATIVE (NEGATIVE); COCAINE METABOLITE URINE NEGATIVE (NEGATIVE); METHADONE URINE NEGATIVE (NEGATIVE); OPIATES URINE POSITIVE (NEGATIVE); PHENCYCLIDINE URINE NEGATIVE (NEGATIVE)
[2019-12-19 22:24] VITALS: BP 90/50
--- NOTE | 2019-12-20 04:16 | REP ---
TWO-VIEW CHEST, 12/19/2019: INDICATION: Chest pain. COMPARISON: 06/02/2017 FINDINGS: There is no pleural effusion, pneumothorax, or significant airspace consolidation. The study is unchanged compared to 2017. Cardiac silhouette is normal. IMPRESSION: No acute cardiopulmonary process. MTDD
== END 2019-12-19 22:25 | disposition home or self-care (01) ==
LOC: M ED 17:04 → EDBD 17:04 → M ED 22:25
DX: F43.0 Acute stress reaction (principal); F41.9 Anxiety disorder, unspecified; R94.31 Abnormal electrocardiogram [ECG] [EKG]; R00.0 Tachycardia, unspecified; F17.200 Nicotine dependence, unspecified, uncomplicated; Z88.0 Allergy status to penicillin; Z88.1 Allergy status to other antibiotic agents; Z91.89 Other specified personal risk factors, not elsewhere classified
CPT/HCPCS: 70450; 71046; 80048; 80076; 80307; 82550; 82553; 83735; 84443; 84703; 85027; 93005; 99285; G0480

== ENCOUNTER → 2020-04-27 | Outpatient (REF) | LOC: M LAB 15:11 | PROVIDERS: ATTEND Nurse Practitioner Adult Health | DX: Z00.00 Encounter for general adult medical examination without abnormal findings (principal) ==

== ENCOUNTER 2020-07-15 15:09 | Emergency (ER) | payer OTHER ==
[~2020-07-15] VITALS: Ht 162.6 cm; Wt 96.4 kg
[2020-07-15] MEDS ORDERED: ACET-683 PO (15:26)
[2020-07-15] MEDS ORDERED: IBUP200T45 PO (15:26)
[2020-07-15] MEDS ORDERED: diphenhydrAMINE 50MG/ML VIAL (J1200) IV STA (16:09)
[2020-07-15] MEDS ORDERED: KETOROLAC 30 MG/ML 1ML VIAL IV ONE (16:15)
[2020-07-15] MEDS ORDERED: METOCLOPRAMIDE INJ 10MG/2ML VIAL (J2765 PER 1) IV ONE (16:15)
[2020-07-15] MEDS ORDERED: NS 1,000 ML IV ONE (16:15)
[2020-07-15 16:21] LABS: BASO % 0.4 % (0.0-1.0); EOS # 0.2 10^3/uL (0.0-0.5); EOS % 2.2 % (0.0-3.0); HEMATOCRIT 39.4 % (36.0-47.0); HEMOGLOBIN 11.9 g/dl (12.0-15.5); LYMPH # 3.5 10^3/uL (1.5-5.0); MEAN CORPUSCULAR HEMOGLOBIN 26.4 pg (27.0-33.0); MEAN CORPUSCULAR HGB CONC 30.2 g/dl (32.0-36.5); MEAN CORPUSCULAR VOLUME 87.6 fl (80.0-96.0); MONO # 0.5 10^3/uL (0.0-0.8); MONO % 4.9 % (0.0-5.0); NEUTROPHILS # 6.6 10^3/uL (1.5-8.5); NEUTROPHILS % 60.1 % (36.0-66.0); PLATELET COUNT, AUTOMATED 282 10^3/uL (150-450); WHITE BLOOD COUNT 10.9 10^3/uL (4.0-10.0)
[2020-07-15 16:49] LABS: BLOOD UREA NITROGEN 11 MG/DL (7-18); CALCIUM LEVEL 8.7 MG/DL (8.5-10.1); CARBON DIOXIDE LEVEL 26 MEQ/L (21-32); CHLORIDE LEVEL 107 MEQ/L (98-107); CREATININE FOR GFR 0.68 MG/DL (0.55-1.30); GLOMERULAR FILTRATION RATE > 60.0 (>60); GLUCOSE, FASTING 119 MG/DL (70-100); MAGNESIUM LEVEL 1.7 MG/DL (1.8-2.4); POTASSIUM SERUM 4.4 MEQ/L (3.5-5.1); SODIUM LEVEL 139 MEQ/L (136-145)
--- NOTE | 2020-07-15 17:08 | REP ---
INDICATION: severe SE[place]OUR COMPARISON: 12/19/2019 TECHNIQUE: Axial noncontrast images from the skull base to the vertex with coronal reformations. This CT examination was performed using the following dose reduction techniques: Automated exposure control, adjustment of mA and/or kv according to the patient's size, and use of iterative reconstruction technique. FINDINGS: The ventricles, sulci, and cisterns are normal in position and appearance. Lam-white differentiation is maintained. No acute intracranial hemorrhage, mass/mass effect, pathology or trauma/injury. No evidence for acute infarction. No extra-axial fluid collection. Calvarium is intact. Paranasal sinuses and mastoid air cells are clear. IMPRESSION: Normal noncontrast head CT. No evidence for acute intracranial pathology or trauma/injury. <Electronically signed by Samson Hassan > 07/15/20 [id number]
[2020-07-15] MEDS ORDERED: methylPREDNISolone 125MG 2ML VIAL IV ONE (17:30)
[2020-07-15] MEDS ORDERED: VALPROATE SOD INJ 1,000 MG in D5W 50 ML IV ONE (18:15)
[2020-07-15] MEDS ORDERED: MAG SULF 1GM/100ML (MAG RUN) 1 GM in IV 1 EA IV ONE (18:15)
[2020-07-15 19:16] VITALS: BP 135/72
== END 2020-07-15 19:31 | disposition home or self-care (01) ==
LOC: M ED 15:09
DX: R51.9 Headache, unspecified (principal); R20.2 Paresthesia of skin; M79.10 Myalgia, unspecified site; F17.200 Nicotine dependence, unspecified, uncomplicated; Z88.0 Allergy status to penicillin; Z88.1 Allergy status to other antibiotic agents; Z91.048 Other nonmedicinal substance allergy status
CPT/HCPCS: 70450; 80048; 83735; 84702; 85025; 96361; 96374; 96375; 99284; J1200; J1885; J2765; J2930; J3475

== ENCOUNTER → 2020-09-14 | Outpatient (REF) | payer OTHER, MEDICAID ==
[~2020-09-14] MED LIST changes: +ACET-683 PO; +IBUP200T45 PO
[2020-09-14 12:31] LABS: BASO % 0.2 % (0.0-1.0); EOS # 0.2 10^3/uL (0.0-0.5); EOS % 2.2 % (0.0-3.0); HEMATOCRIT 40.1 % (36.0-47.0); HEMOGLOBIN 12.2 g/dl (12.0-15.5); LYMPH # 3.2 10^3/uL (1.5-5.0); LYMPH % 33.4 % (24.0-44.0); MEAN CORPUSCULAR HEMOGLOBIN 26.3 pg (27.0-33.0); MEAN CORPUSCULAR HGB CONC 30.4 g/dl (32.0-36.5); MEAN CORPUSCULAR VOLUME 86.6 fl (80.0-96.0); MONO # 0.5 10^3/uL (0.0-0.8); MONO % 5.3 % (2.0-8.0); NEUTROPHILS # 5.5 10^3/uL (1.5-8.5); NEUTROPHILS % 58.3 % (36.0-66.0); PLATELET COUNT, AUTOMATED 300 10^3/uL (150-450); RED BLOOD COUNT 4.63 10^6/uL (4.00-5.40); WHITE BLOOD COUNT 9.5 10^3/uL (4.0-10.0)
[2020-09-14 12:48] LABS: ALBUMIN 3.6 GM/DL (3.2-5.2); ALT/SGPT 19 U/L (12-78); BILIRUBIN,TOTAL < 0.1 MG/DL (0.2-1.0); BLOOD UREA NITROGEN 10 MG/DL (7-18); CALCIUM LEVEL 8.6 MG/DL (8.5-10.1); CARBON DIOXIDE LEVEL 26 MEQ/L (21-32); CHLORIDE LEVEL 106 MEQ/L (98-107); CREATININE FOR GFR 0.67 MG/DL (0.55-1.30); FREE T4 0.91 NG/DL (0.76-1.46); GLOMERULAR FILTRATION RATE > 60.0 (>60); GLUCOSE, FASTING 101 MG/DL (70-100); POTASSIUM SERUM 3.9 MEQ/L (3.5-5.1); SODIUM LEVEL 138 MEQ/L (136-145); TOTAL 25(OH) VITAMIN D 10.4 NG/ML (30.0-100.0); TOTAL PROTEIN 7.1 GM/DL (6.4-8.2)
== END ==
LOC: M SFHCADAM 10:30
PROVIDERS: ATTEND Physician Assistant Medical
DX: F32.2 Major depressive disorder, single episode, severe without psychotic features (principal); F41.1 Generalized anxiety disorder; Z13.220 Encounter for screening for lipoid disorders; Z13.0 Encounter for screening for diseases of the blood and blood-forming organs and certain disorders involving the immune mechanism

== ENCOUNTER 2020-09-28 16:45 | Emergency (ER) | payer OTHER, MEDICAID ==
[~2020-09-28] VITALS: Ht 157.5 cm; Wt 97.0 kg
[2020-09-28] MEDS ORDERED: EXCETAB33 PO (16:55)
[2020-09-28] MEDS ORDERED: VENL75CA2 (16:55)
[2020-09-28 18:14] LABS: BASO % 0.2 % (0.0-1.0); EOS # 0.2 10^3/uL (0.0-0.5); EOS % 1.2 % (0.0-3.0); HEMATOCRIT 40.8 % (36.0-47.0); HEMOGLOBIN 12.6 g/dl (12.0-15.5); LYMPH # 3.6 10^3/uL (1.5-5.0); LYMPH % 26.5 % (24.0-44.0); MEAN CORPUSCULAR HEMOGLOBIN 26.9 pg (27.0-33.0); MEAN CORPUSCULAR HGB CONC 30.9 g/dl (32.0-36.5); MEAN CORPUSCULAR VOLUME 87.2 fl (80.0-96.0); MONO # 0.7 10^3/uL (0.0-0.8); NEUTROPHILS # 9.2 10^3/uL (1.5-8.5); NEUTROPHILS % 66.7 % (36.0-66.0); PLATELET COUNT, AUTOMATED 303 10^3/uL (150-450); RED BLOOD COUNT 4.68 10^6/uL (4.00-5.40); WHITE BLOOD COUNT 13.7 10^3/uL (4.0-10.0)
[2020-09-28] MEDS ORDERED: ONDANSETRON 4MG/2ML VIAL IV ONE (18:15)
[2020-09-28] MEDS ORDERED: KETOROLAC 30 MG/ML 1ML VIAL IV ONE (18:15)
[2020-09-28] MEDS ORDERED: ISOVUE-370 76% 100ML VIAL As Ordered ONE (18:44)
[2020-09-28 18:46] LABS: ALBUMIN 3.4 GM/DL (3.2-5.2); ALT/SGPT 19 U/L (12-78); BILIRUBIN,DIRECT < 0.1 MG/DL (0.0-0.2); BILIRUBIN,TOTAL 0.1 MG/DL (0.2-1.0); LIPASE 89 U/L (73-393); TOTAL PROTEIN 6.7 GM/DL (6.4-8.2)
[2020-09-28] MEDS ORDERED: DICYCLOMINE 10 MG CAP PO ONE (19:00)
--- NOTE | 2020-09-28 19:28 | REPVR ---
PROCEDURE INFORMATION: Exam: CT Abdomen And Pelvis With Contrast Exam date and time: 09/28/2020 6:58 PM Age: 35 years old Clinical indication: Abdominal pain; Localized; Lower; Additional info: Lower abd pain TECHNIQUE: Imaging protocol: Computed tomography of the abdomen and pelvis with contrast. Radiation optimization: All CT scans at this facility use at least one of these dose optimization techniques: automated exposure control; mA and/or kV adjustment per patient size (includes targeted exams where dose is matched to clinical indication); or iterative reconstruction. Contrast material: ISOVUE 370; Contrast volume: 100 ml; Contrast route: INTRAVENOUS (IV); COMPARISON: CT ABD PELVIS WITH CONTRAST 07/18/2017 9:47 PM FINDINGS: Lungs: No suspicious mass or airspace process in the visualized lung bases. Liver: Liver appears normal with no focal abnormality. Gallbladder and bile ducts: Gallbladder is present and shows no evidence of gallstone. Pancreas: Pancreas appears normal. No focal mass or peripancreatic inflammation. Spleen: Spleen appears homogeneous without focal mass. Adrenal glands: Adrenal glands are normal in appearance. Kidneys and ureters: Kidneys appear normal, with no stone, solid mass or hydronephrosis. Stomach and bowel: No evidence of small bowel obstruction. Multiple fluid-filled loops of nondilated bowel with enhancing mucosa are present. Appendix: Appendix is not seen. No RLQ inflammation to suggest appendicitis. Intraperitoneal space: No pneumoperitoneum. Vasculature: No aortic aneurysm. Main portal and splenic veins enhance normally. Lymph nodes: . No enlarged lymph nodes. Urinary bladder: Urinary bladder appears normal. Reproductive: Female reproductive organs appear unremarkable. Bones/joints: Bony structures show no acute fracture or destructive process. Soft tissues: No concerning focal abnormality of the extra-abdominal and pelvic soft tissues. IMPRESSION: 1. Findings are suggestive of inflammatory or infectious enteritis without obstruction or perforation 2. Nonvisualization of the appendix, with the constellation of other findings making appendicitis unlikely. Electronically signed by: Ramy Stone On 09/28/2020 19:28:53 PM
[2020-09-28 19:29] LABS: AMPHETAMINES LEVEL URINE NEGATIVE (NEGATIVE); BARBITURATES URINE NEGATIVE (NEGATIVE); BENZODIAZEPINES URINE NEGATIVE (NEGATIVE); CANNABINOIDS URINE NEGATIVE (NEGATIVE); COCAINE METABOLITE URINE NEGATIVE (NEGATIVE); METHADONE URINE NEGATIVE (NEGATIVE); OPIATES URINE NEGATIVE (NEGATIVE); PHENCYCLIDINE URINE NEGATIVE (NEGATIVE)
[2020-09-28 20:45] VITALS: BP 126/60
[2020-09-28] MEDS ORDERED: BACT800T5 PO (21:05)
[2020-09-28] MEDS ORDERED: DICY20TA11 PO (21:05)
[2020-09-28] MEDS ORDERED: ONDA4TAB6 PO (21:05)
== END 2020-09-28 21:30 | disposition home or self-care (01) ==
LOC: M ED 16:45
DX: A09 Infectious gastroenteritis and colitis, unspecified (principal); N39.0 Urinary tract infection, site not specified; G43.909 Migraine, unspecified, not intractable, without status migrainosus; F41.9 Anxiety disorder, unspecified; F32.9 Major depressive disorder, single episode, unspecified; Z88.0 Allergy status to penicillin; Z88.1 Allergy status to other antibiotic agents; Z91.048 Other nonmedicinal substance allergy status; F17.210 Nicotine dependence, cigarettes, uncomplicated; Z79.899 Other long term (current) drug therapy
CPT/HCPCS: 74177; 80047; 80076; 80307; 81001; 83690; 84702; 85025; 87086; 96374; 96375; 99284; J1885; J2405; Q9967

== ENCOUNTER 2021-02-24 16:49 | Emergency (ER) | payer MEDICAID, OTHER ==
[~2021-02-24] VITALS: Ht 162.6 cm; Wt 84.1 kg
[~2021-02-24 16:49] MED LIST changes: +BACT800T5 PO; +DICY20TA11 PO; +EXCETAB33 PO; +ONDA4TAB6 PO; +VENL75CA2
[2021-02-24] MEDS ORDERED: KETOROLAC TROMETHAMINE 10 MG TAB PO ONE (21:25)
--- NOTE | 2021-02-24 22:24 | REPVR ---
PROCEDURE INFORMATION: Exam: US Duplex Right Lower Extremity Veins, Limited Exam date and time: 02/24/2021 10:15 PM Age: 35 years old Clinical indication: Pain; Other: Knee; Additional info: Swelling/pain TECHNIQUE: Imaging protocol: Real-time Duplex ultrasound of the Right Lower Extremity with 2-D beckman scale, color Doppler flow and spectral waveform analysis with image documentation. Limited exam was focused on the right lower extremity veins. COMPARISON: US BPP W/O NON STRESS TEST 09/26/2019 11:46 AM FINDINGS: Right deep veins: Unremarkable. The common femoral, femoral, proximal profunda femoral and popliteal veins are patent without thrombus. Normal Doppler waveforms. Normal compressibility and/or augmentation response. Right superficial veins: Unremarkable. Saphenofemoral junction is patent without thrombus. Soft tissues: Leg swelling. IMPRESSION: No evidence of deep vein thrombosis. Electronically signed by: Peng Lai On 02/24/2021 22:24:36 PM
--- NOTE | 2021-02-24 22:29 | REPVR ---
PROCEDURE INFORMATION: Exam: XR Right Knee Exam date and time: 02/24/2021 9:36 PM Age: 35 years old Clinical indication: Pain; Knee; Right; Additional info: Swelling/pain TECHNIQUE: Imaging protocol: XR Right knee. Views: 4 or more views. COMPARISON: No relevant prior studies available. FINDINGS: Bones/joints: There is no evidence of fracture or bony abnormality. Soft tissues: There may be mild soft tissue swelling. IMPRESSION: No evidence of bony abnormality. Electronically signed by: Peng Lai On 02/24/2021 22:28:44 PM
[2021-02-24 23:17] VITALS: BP 119/66
[2021-02-24] MEDS ORDERED: IBUP80TA PO (23:29)
== END 2021-02-25 00:56 | disposition home or self-care (01) ==
LOC: M ED 16:49
DX: M25.561 Pain in right knee (principal); F33.9 Major depressive disorder, recurrent, unspecified; F41.9 Anxiety disorder, unspecified; Z79.899 Other long term (current) drug therapy; Z88.0 Allergy status to penicillin; Z88.1 Allergy status to other antibiotic agents; Z91.048 Other nonmedicinal substance allergy status; F17.210 Nicotine dependence, cigarettes, uncomplicated

== ENCOUNTER → 2021-03-07 | Outpatient (CLI) | payer OTHER ==
--- NOTE | 2021-03-07 13:57 | REP ---
INDICATION: LOW BACK PAIN. COMPARISON: None. TECHNIQUE: AP, lateral, flexion, and extension views of the lumbar spine FINDINGS: Alignment and lordosis maintained. Vertebral bodies are intact. No acute fracture/compression injury or subluxation. Focal endplate sclerosis and disc space narrowing at L5-S1 noted. No further significant degenerative changes are appreciated. IMPRESSION: Mild focal degenerative spondylosis at L5-S1. <Electronically signed by Samson Hassan > 03/07/21 [id number]
== END ==
LOC: M SOG 13:20
PROVIDERS: ATTEND Orthopaedic Surgery
DX: M54.5 Low back pain (principal)

== ENCOUNTER → 2021-03-14 | Outpatient (CLI) | payer OTHER ==
[~2021-03-14] MED LIST changes: +AFRI0.058; +BENZ200C70 PO; -DICY20TA11 PO; +DICY20TA20 PO; +GABA-282 PO; +GABAPENTIN 300 MG CAP PO SCH; -IBUP200T45 PO; +IBUP200T46 PO
== END ==
LOC: M PLAIMG 15:24
PROVIDERS: ATTEND Orthopaedic Surgery
DX: M54.17 Radiculopathy, lumbosacral region (principal)

== ENCOUNTER 2021-03-27 02:11 | Emergency (ER) | payer OTHER ==
[~2021-03-27] VITALS: Ht 162.6 cm; Wt 84.1 kg
[~2021-03-27 02:11] MED LIST changes: -AFRI0.058; -BENZ200C70 PO; +DICY20TA11 PO; -DICY20TA20 PO; -GABA-282 PO; -GABAPENTIN 300 MG CAP PO SCH; +IBUP200T45 PO; -IBUP200T46 PO
[2021-03-27] MEDS ORDERED: GABA-282 PO (02:55)
[2021-03-27] MEDS ORDERED: NS 1,000 ML IV ONE (05:20)
[2021-03-27] MEDS ORDERED: KETOROLAC 30 MG/ML 1ML VIAL IV ONE (05:20)
[2021-03-27] MEDS ORDERED: ACETAMINOPHEN 500 MG TAB PO ONE (06:40)
[2021-03-27] MEDS ORDERED: diphenhydrAMINE 50MG/ML VIAL (J1200) IV ONE (06:40)
[2021-03-27] MEDS ORDERED: METOCLOPRAMIDE INJ 10MG/2ML VIAL (J2765 PER 1) IV ONE (06:40)
[2021-03-27 08:10] VITALS: BP 115/55
== END 2021-03-27 08:14 | disposition home or self-care (01) ==
LOC: M ED 02:11
DX: R53.81 Other malaise (principal); R51.9 Headache, unspecified; T50.Z95A Adverse effect of other vaccines and biological substances, initial encounter; Y92.89 Other specified places as the place of occurrence of the external cause; F41.1 Generalized anxiety disorder; Z88.0 Allergy status to penicillin; Z88.1 Allergy status to other antibiotic agents; Z91.048 Other nonmedicinal substance allergy status; F17.210 Nicotine dependence, cigarettes, uncomplicated
CPT/HCPCS: 96361; 96374; 96375; 99285; J1200; J1885; J2765

== ENCOUNTER 2021-04-07 14:53 | Emergency (ER) | payer OTHER ==
[~2021-04-07] VITALS: Ht 162.6 cm; Wt 93.7 kg
[~2021-04-07 14:53] MED LIST changes: +GABA-282 PO
[2021-04-07 16:45] LABS: RSV AMPLIFICATION NEGATIVE (NEGATIVE)
[2021-04-07] MEDS ORDERED: AFRI0.058 (17:06)
[2021-04-07] MEDS ORDERED: BENZ200C70 PO (17:06)
[2021-04-07 17:14] VITALS: BP 146/73
== END 2021-04-07 17:12 | disposition home or self-care (01) ==
LOC: M ED 14:53
DX: J06.9 Acute upper respiratory infection, unspecified (principal); B34.8 Other viral infections of unspecified site; F33.9 Major depressive disorder, recurrent, unspecified; F41.9 Anxiety disorder, unspecified; Z79.899 Other long term (current) drug therapy; Z88.0 Allergy status to penicillin; Z88.1 Allergy status to other antibiotic agents; Z91.048 Other nonmedicinal substance allergy status

== ENCOUNTER → 2021-09-24 | Outpatient (REF) ==
[~2021-09-24] MED LIST changes: +AFRI0.058; +BENZ200C70 PO; -DICY20TA11 PO; +DICY20TA20 PO; -IBUP200T45 PO; +IBUP200T46 PO
== END ==
LOC: M PLAIMG 13:40
PROVIDERS: ATTEND Internal Medicine
DX: Z00.00 Encounter for general adult medical examination without abnormal findings (principal)

== ENCOUNTER → 2021-12-12 | Outpatient (CLI) | payer OTHER, MEDICAID ==
[~2021-12-12] MED LIST changes: -AFRI0.058; +EXCETAB32 PO; -EXCETAB33 PO; +OXYM15SP2
== END ==
LOC: M PAIN 11:45
PROVIDERS: ATTEND Nurse Practitioner Family
DX: M51.16 Intervertebral disc disorders with radiculopathy, lumbar region (principal); F41.9 Anxiety disorder, unspecified; F32.A Depression, unspecified; E66.01 Morbid (severe) obesity due to excess calories; E55.9 Vitamin D deficiency, unspecified; F17.210 Nicotine dependence, cigarettes, uncomplicated; Z68.37 Body mass index [BMI] 37.0-37.9, adult; Z79.1 Long term (current) use of non-steroidal anti-inflammatories (NSAID); Z79.899 Other long term (current) drug therapy; Z88.0 Allergy status to penicillin; Z91.048 Other nonmedicinal substance allergy status

== ENCOUNTER → 2022-02-12 | Outpatient (CLI) | payer OTHER, MEDICAID | LOC: M PAIN 10:45 | PROVIDERS: ATTEND Anesthesiology | DX: M51.16 Intervertebral disc disorders with radiculopathy, lumbar region (principal); F41.9 Anxiety disorder, unspecified; F32.A Depression, unspecified; E66.01 Morbid (severe) obesity due to excess calories; E55.9 Vitamin D deficiency, unspecified; F17.210 Nicotine dependence, cigarettes, uncomplicated; Z68.36 Body mass index [BMI] 36.0-36.9, adult; Z79.1 Long term (current) use of non-steroidal anti-inflammatories (NSAID); Z79.899 Other long term (current) drug therapy; Z88.0 Allergy status to penicillin; Z91.048 Other nonmedicinal substance allergy status ==

== ENCOUNTER 2022-04-20 22:08 | Emergency (ER) | payer MEDICAID, OTHER ==
[~2022-04-20] VITALS: Ht 162.6 cm; Wt 91.8 kg
[2022-04-20 22:54] LABS: HEMATOCRIT 40.7 % (36.0-47.0); HEMOGLOBIN 12.9 g/dl (12.0-15.5); MEAN CORPUSCULAR HEMOGLOBIN 27.5 pg (27.0-33.0); MEAN CORPUSCULAR HGB CONC 31.7 g/dl (32.0-36.5); MEAN CORPUSCULAR VOLUME 86.8 fl (80.0-96.0); PLATELET COUNT, AUTOMATED 313 10^3/uL (150-450); RED BLOOD COUNT 4.69 10^6/uL (4.00-5.40); WHITE BLOOD COUNT 11.2 10^3/uL (4.0-10.0)
[2022-04-20 23:26] LABS: RSV AMPLIFICATION NEGATIVE (NEGATIVE)
[2022-04-20 23:33] LABS: AMPHETAMINES LEVEL URINE NEGATIVE (NEGATIVE); BARBITURATES URINE NEGATIVE (NEGATIVE); BENZODIAZEPINES URINE NEGATIVE (NEGATIVE); CANNABINOIDS URINE NEGATIVE (NEGATIVE); COCAINE METABOLITE URINE NEGATIVE (NEGATIVE); METHADONE URINE NEGATIVE (NEGATIVE); OPIATES URINE NEGATIVE (NEGATIVE); PHENCYCLIDINE URINE NEGATIVE (NEGATIVE)
[2022-04-20 23:48] LABS: HCG, SERUM QUALITATIVE NEGATIVE (NEGATIVE)
[2022-04-20 23:49] LABS: ALBUMIN 3.7 GM/DL (3.2-5.2); ALT/SGPT 25 U/L (12-78); BILIRUBIN,DIRECT < 0.1 MG/DL (0.0-0.2); BILIRUBIN,TOTAL 0.2 MG/DL (0.2-1.0); BLOOD UREA NITROGEN 7 MG/DL (7-18); CALCIUM LEVEL 8.7 MG/DL (8.5-10.1); CARBON DIOXIDE LEVEL 25 MEQ/L (21-32); CHLORIDE LEVEL 108 MEQ/L (98-107); CREATININE FOR GFR 0.73 MG/DL (0.55-1.30); GLOMERULAR FILTRATION RATE > 60.0 (>60); GLUCOSE, FASTING 121 MG/DL (70-100); POTASSIUM SERUM 3.6 MEQ/L (3.5-5.1); SALICYLATE LEVEL < 1.7 MG/DL (5.0-30.0); SODIUM LEVEL 139 MEQ/L (136-145); THYROID STIMULATING HORMONE 0.226 uIU/ML (0.358-3.740); TOTAL PROTEIN 7.2 GM/DL (6.4-8.2)
[2022-04-20 23:50] LABS: ACETAMINOPHEN LEVEL < 2.0 UG/ML (10.0-30.0); ETHYL ALCOHOL (ETHANOL) < 0.003 % (0.000-0.010)
[2022-04-21] MEDS ORDERED: DERMABOND TOPICAL SKIN ADHESIVE TOP ONE (00:30)
[2022-04-21] MEDS ORDERED: ALPRAZolam 0.5 MG TAB PO ONE (01:05)
[2022-04-21] MEDS ORDERED: IBUPROFEN 600MG TAB PO ONE (01:05)
[2022-04-21] MEDS ORDERED: TRAZ-252 PO (01:22)
[2022-04-21] MEDS ORDERED: FLUO40CA PO (01:22)
[2022-04-21] MEDS ORDERED: VITA100093 PO (01:22)
[2022-04-21] MEDS ORDERED: MELO7.5T35 PO (01:22)
[2022-04-21] MEDS ORDERED: BOOSTRIX/ADACEL VACCINE (DIPHTH/PERTUSS/ACELL/TETANUS) 0.5ML SYR IM.IMMUN ONE (04:20)
[2022-04-21 20:21] VITALS: BP 138/88
== END 2022-04-21 20:16 ==
LOC: M ED 22:08
DX: R45.851 Suicidal ideations (principal); F32.A Depression, unspecified; Z23 Encounter for immunization; Z88.0 Allergy status to penicillin; Z88.8 Allergy status to other drugs, medicaments and biological substances; Z91.048 Other nonmedicinal substance allergy status

== ENCOUNTER 2022-10-01 13:48 | Emergency (ER) | payer OTHER ==
[~2022-10-01] VITALS: Ht 162.6 cm; Wt 100.0 kg
[~2022-10-01 13:48] MED LIST changes: +BUSP5TAB PO; -BUSP5TAB81 PO; +FLUO40CA PO; +MELO7.5T35 PO; +TRAZ-252 PO; +VITA100093 PO
[2022-10-01] MEDS ORDERED: traMADol 50 MG TAB PO ONE (14:40)
[2022-10-01] MEDS ORDERED: ACETAMINOPHEN TAB 650MG DOSE (2X325MG) PO ONE (14:40)
[2022-10-01] MEDS ORDERED: KETO10TAB PO (14:45)
[2022-10-01 15:06] VITALS: BP 139/67
== END 2022-10-01 15:09 | disposition home or self-care (01) ==
LOC: M ED 13:48
DX: S46.001A Unspecified injury of muscle(s) and tendon(s) of the rotator cuff of right shoulder, initial encounter (principal); X50.0XXA Overexertion from strenuous movement or load, initial encounter; Y99.0 Civilian activity done for income or pay; F32.A Depression, unspecified; F17.200 Nicotine dependence, unspecified, uncomplicated; Z88.0 Allergy status to penicillin; Z88.1 Allergy status to other antibiotic agents; Z91.048 Other nonmedicinal substance allergy status; Z79.899 Other long term (current) drug therapy

== ENCOUNTER → 2022-10-03 | Outpatient (CLI) | payer OTHER ==
[~2022-10-03] MED LIST changes: +KETO10TAB PO
== END ==
LOC: M SOG 07:56
PROVIDERS: ATTEND Orthopaedic Surgery
DX: M25.511 Pain in right shoulder (principal)

== ENCOUNTER 2023-01-03 17:11 | Emergency (ER) | payer OTHER ==
[~2023-01-03] VITALS: Ht 162.6 cm; Wt 100.0 kg
[2023-01-03] MEDS ORDERED: ACETAMINOPHEN 500 MG TAB PO ONE (18:40)
[2023-01-03] MEDS ORDERED: KETOROLAC 30 MG/ML 1ML VIAL IM ONE (18:55)
[2023-01-03] MEDS ORDERED: traMADol 50 MG TAB PO ONE (21:00)
[2023-01-03] MEDS ORDERED: NAPR-837 PO (21:03)
[2023-01-03 21:12] VITALS: BP 138/81; TEMP 96.7; O2SAT 96
== END 2023-01-03 21:16 | disposition home or self-care (01) ==
LOC: M ED 17:11
DX: M72.2 Plantar fascial fibromatosis (principal); M51.36 Other intervertebral disc degeneration, lumbar region; F17.200 Nicotine dependence, unspecified, uncomplicated; Z88.0 Allergy status to penicillin; Z88.1 Allergy status to other antibiotic agents; Z79.899 Other long term (current) drug therapy
CPT/HCPCS: 73630; 84550; 96372; 99283; J1885

== ENCOUNTER → 2023-02-12 | Outpatient (CLI) | payer OTHER ==
[~2023-02-12] MED LIST changes: +NAPR-837 PO
== END ==
LOC: M PLAIMG 10:56
PROVIDERS: ATTEND Orthopaedic Surgery
DX: M25.511 Pain in right shoulder (principal)

== ENCOUNTER → 2025-05-16 | Outpatient (RCR) ==
[~2025-05-16] MED LIST changes: +GABA-1172 PO; -GABA-282 PO; +ONDA-282 PO; -ONDA4TAB6 PO
== END ==
LOC: M EMPSSV 05-08 08:57
PROVIDERS: ATTEND Family Medicine
DX: Z20.828 Contact with and (suspected) exposure to other viral communicable diseases (principal)